=== PATIENT | male | born 1980 ===

== ENCOUNTER 2020-04-27 14:11 | Outpatient (REF) | payer OTHER, SELFPAY | END 2020-04-27 14:12 | disposition home or self-care (01) | LOC: HO.LAB 14:11 | PROVIDERS: Visit Provider Internal Medicine | DX: Z20.828 Contact with and (suspected) exposure to other viral communicable diseases (principal) | CPT/HCPCS: 87635 ==

== ENCOUNTER 2020-05-30 22:32 | Emergency (ER) | payer OTHER, SELFPAY ==
--- NOTE | 2020-05-30 22:37 | PC.NURSE ---
PATIENT'S SISTER RISHI CALLS AT THIS TIME TO PROVIDE CONTACT INFO [phone]
--- NOTE | 2020-05-30 22:42 | ED.LOWEXIN ---
HPI - Extremity Injury (Lower) General Chief Complaint: Fall Stated Complaint: FALL,RT KNEE DISLOCATION,ETOH,?LOC Time Seen by Provider: 05/30/20 22:41 Source: patient and EMS Mode of arrival: EMS Limitations: no limitations History of Present Illness HPI Narrative: Apparently patient had few drinks at home with history of seizures was coming inside with wine cooler in hand lost balance noticed severe pain in right knee and he dropped the cooler, patient fell without any significant head injury transient dazing no seizure activity no tongue bite patient feels fine now. According to patient's brother his right kneecap was on the side which he pushed back at this time patient just complaining of knee pain. Patient denied any prior history of any problems MD complaint: knee injury Related Data Previous Rx's Medication Instructions Recorded ibuprofen 600 mg PO Q6H PRN #20 tab 05/31/20 Allergies Allergy/AdvReac Type Severity Reaction Status Date / Time No Known Allergies Allergy Unverified 03/30/20 16:34 Review of Systems Review of Systems: REVIEW OF SYSTEMS: Pertinent positives and negatives are stated above in the history. GEN: no fevers, chills, fatigue HEENT: no nasal congestion, sore throat, ear pain NEURO: no headache, dizziness, focal weakness PULM: no cough, shortness of breath CV: no chest pain, palpitations, LE edema ABD: no abdominal pain, nausea, vomiting, diarrhea : no dysuria, urgency, frequency SKIN: no rash ROS otherwise negative x 10 PMFSH Social History Social History Advance Directives: No Advance Directives Information Provided: Yes Physical Exam Vital Signs: Vital Signs: Last Vital Signs Pulse 89 05/30/20 22:43 Resp 18 05/30/20 22:43 Pulse Ox 96 05/30/20 22:43 Body Mass Index 36.3 Const: General: cooperative, healthy appearing, comfortable and no acute distress Orientation/consciousness: oriented to person, oriented to place and oriented to time HENMT: Head: Yes normal to inspection Ears: hearing grossly normal bilaterally General nose exam: Normal external nose present Face and sinus: Yes normal facial exam Mouth: Normal oral and palatal mucosa present and oropharynx normal Eyes: General: appearance normal, both eyes and all related structures Neck: Neck: Yes normal visual inspection and Yes full ROM Chest: Chest palpation & inspection: normal inspection of the chest and normal palpation of entire chest wall Resp: Effort & Inspection: normal respiratory effort Auscultation: clear to auscultation bilaterally Cardio: Rate: regular rate Rhythm: regular rhythm Heart sounds: S1 normal heart sound present and S2 normal heart sound present GI: Inspection: Yes normal to inspection Palpation (GI): Soft to palpation, Firmness to palpation present (GI), nontender and no guarding : General: Yes no CVA tenderness Back/Spine/Pelvis: Back: no CVA tenderness Cervical Spine: normal cervical lordosis Thoracic/Lumbar Spine: thoracic and lumbar spine normal to inspection Pelvis: no pain with anterior-posterior compression Neuro: General: oriented to person, oriented to place and oriented to time Cranial nerves: Yes CN's II-XII intact bilaterally Gait exam (Neuro): Normal gait present Extrem: Knee images: 1. Medial joint line tenderness no laxity Matt sign is negative good range of movement no effusion patellas normal location Course Course Course Narrative: Patient x-ray of the knees negative clinically patient had medial collateral ligament strain able to ambulate in the ER will discharge him home Mario wrap was applied Discharge Plan Discharge Clinical Impression: Knee MCL sprain Qualifiers: Encounter type: initial encounter Laterality: right Qualified Code(s): S83.411A - Sprain of medial collateral ligament of right knee, initial encounter Patient Disposition: Home, Self-Care Instructions: Knee Sprain (ED) Additional Instructions: Care of right knee is advised avoid going upstairs apply Mario wrap or knee band for support, ibuprofen for pain report to the PCP if pain does not get better Prescriptions: New ibuprofen 600 mg tablet 600 mg PO Q6H PRN (Reason: pain) Qty: 20 RF: 0 Stand Alone Forms: Work/School Release Interventions: ED Discharge Assessment Last Done: 05/31/20 00:26 Discharge Date/Time: 05/31/20 00:31
[2020-05-30 22:43] VITALS: BP 128/84; PULSE 84; PULSE 89; RESP 18; O2SAT 96; O2SAT 98; BMI 36.3
--- NOTE | 2020-05-30 23:00 | XR_ITS ---
EXAMINATION: XR KNEE, RIGHT CLINICAL INFORMATION: Fall. Patellar dislocation. COMPARISON: None TECHNIQUE: Four views of the right knee. FINDINGS: Bones and soft tissues are normal. No fracture or joint effusion. Alignment is anatomic. Joint spaces are well maintained. No abnormal soft tissue calcification. XR/XR knee RT 4V IMPRESSION: Normal right knee.
== END 2020-05-31 00:31 | disposition home or self-care (01) ==
PROVIDERS: Emergency Provider Internal Medicine; PCP Internal Medicine Medical Oncology
DX: S83.411A Sprain of medial collateral ligament of right knee, initial encounter (principal); M25.561 Pain in right knee; Y29.XXXA Contact with blunt object, undetermined intent, initial encounter; Y93.9 Activity, unspecified; Y92.009 Unspecified place in unspecified non-institutional (private) residence as the place of occurrence of the external cause; Y99.9 Unspecified external cause status
CPT/HCPCS: 73564; 99283

== ENCOUNTER 2023-06-11 15:26 | Outpatient (AMB) | payer OTHER, SELFPAY ==
[2023-06-11 15:37] VITALS: BP 132/90; PULSE 85; O2SAT 98; BMI 29.3
--- NOTE | 2023-06-11 15:37 | A.OFFPC_ITS ---
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 Previous PCP Dr. Stoll, last visit 2019. Medical history significant for epilepsy-patient reports last seizure about in 2012-stable with carbamazepine-does not see Neurology anymore, GERD, smoker-would like to have nicotine patch. Reports drinking beer 5 times per week about 6-7 drinks per day, encouraged alcohol cessation-he declined referral to comprehensive care clinic. Reports he lost about 30 lb in the past year, reports sometimes he has to move bowels 4 times per day - no consistency, denies constipation or diarrhea. No shortness of breath or chest pain. Discussed tetanus vaccine. [facility] Surgical History History of hernia surgery Social History Housing: House Patient Tobacco Use Status: Current everyday Tobacco user Cigarettes Per Day: 8 service: No Current occupational status: employed Cognitive needs: No Hearing needs: No Vision needs: No Questionnaire Thrive Questionnaire Date Thrive assessed: 06/11/23 I am a: Patient What is your living situation today?: I have a steady place to live Within the past 12 months, did the food you bought not last and you didn't have the money to get more?: Never true Within the past 12 months, did you worry whether your food would run out before you got money to buy more?: Never true Currently or been in a relationship where the following occur: no concerns reported AUDIT C Alcohol Use Questionnaire (AUDIT-C) 1. How often do you have a drink containing alcohol?: 4 or more times a week 2. How many drinks containing alcohol do you have on a typical day when you are drinking?: 5 or 6 3. How often do you have six or more drinks on one occasion?: Never Total Score: 6 Score Reviewed/Action Taken: Yes DEMARIO-7 AMB Questionnaire DEMARIO-7 Date DEMARIO - 7 assessed: 06/11/23 Feeling nervous, anxious, or on edge: 0 = Not at all Not being able to stop or control worryin = Not at all Worrying too much about different things: 0 = Not at all Trouble relaxin = Not at all Being so restless that it is hard to sit still: 0 = Not at all Becoming easily annoyed or irritable: 0 = Not at all Feeling afraid as if something awful might happen: 0 = Not at all Total DEMARIO-7 score (0-4 normal; 5-9 mild; 10-14 moderate; 15-21 severe): 0 Source: Developed by Drs. Vick Restrepo, Ashley Moody, Al Gonzalez and colleagues, with an educational kareem from [employer]. DEMARIO-7 Assessment Billing DEMARIO-7 Assessment Tool: DEMARIO-7 Assessment 33005 Review of Systems Const Denies body aches, Denies chills, Denies fever(s), Denies headache(s) and Reports weight loss Eyes Denies change in vision ENT Denies dizziness, Denies otalgia, Denies headache(s), Denies nasal discharge, Denies sinus pain and Denies sore throat Card Denies chest pain, Denies edema, Denies lightheadedness and Denies dyspnea Resp Denies cough, Denies dyspnea and Denies wheezing GI Denies abdominal pain, Denies constipation, Denies diarrhea, Denies nausea and Denies vomiting Denies dysuria Musc Denies myalgias Skin/Breast Denies rash Neuro Denies dizziness and Denies headache(s) Aller/Immun Denies wheezing Physical exam (Primary Care) Vital Signs: Last Vital Signs Pulse 85 06/11/23 15:37 BP 132/90 H 06/11/23 15:37 Pulse Ox 98 06/11/23 15:37 Oxygen Delivery Method Room Air 06/11/23 15:37 BMI result Body Mass Index 29.3 Tobacco/Smoking Status: Tobacco use Status Tobacco use date assessed 06/11/23 06/11/23 15:38 Patient Tobacco Use Status Current everyday Tobacco 06/11/23 15:46 Thrive Assessment: Date of Thrive Assessment Date Thrive assessed 06/11/23 06/11/23 15:46 Currently or been in a relationship where the following occur: no concerns reported Const General: cooperative and no acute distress Orientation/consciousness: patient oriented x3 HENMT Head: Yes normocephalic and Yes atraumatic Ears: TM's normal bilaterally Face and sinus: Yes sinuses nontender Mouth: oropharynx normal and moist mucous membranes Throat: Yes posterior oropharynx normal Eyes General: appearance normal, both eyes and all related structures Pupils: Equal, round and reactive pupils present EOM: EOMs intact bilaterally Neck Neck: Yes normal visual inspection, Yes full ROM and Yes no lymphadenopathy Thyroid: Thyroid normal Resp Effort & Inspection: normal respiratory effort and able to speak in complete sentences Auscultation: clear to auscultation bilaterally, no crackles, no rales, no rhonchi and no wheezes Cardio Rate: regular rate Rhythm: regular rhythm Heart sounds: S1 normal heart sound present, S2 normal heart sound present and no murmurs GI Palpation (GI): Soft to palpation, not firm, nontender, no guarding, not rigid and no hepatosplenomegaly Auscultation: normal bowel sounds General: No CVA tenderness Back/Spine/Pelvis Back: No CVA tenderness Skin General skin exam: no rashes or lesions noted Neuro General: patient oriented x3 Cranial nerves: Yes Equal, round and reactive pupils present Gait exam (Neuro): Normal gait present Extrem General: Yes full ROM and No edema Assessment and Plan Assessment & Plan (1) Adult general medical exam: Code(s): Z00.00 - Encounter for general adult medical examination without abnormal findings (2) Smoker: Code(s): F17.200 - Nicotine dependence, unspecified, uncomplicated Plan: Reports smoking about 8 cigarettes per day Encouraged smoking cessation Nicotine patch sent (3) Epilepsy: Comment: last seizure about 2012 Code(s): G40.909 - Epilepsy, unspecified, not intractable, without status epilepticus Plan: On carbamazepine 100 mg b.i.d. (4) GERD (gastroesophageal reflux disease): Code(s): K21.9 - Gastro-esophageal reflux disease without esophagitis Plan: Stable with omeprazole Avoid GERD trigger foods Do not lay down 2-3 hours after evening meal (5) Weight loss: Code(s): R63.4 - Abnormal weight loss Plan: Blood work ordered (6) Alcohol abuse: Code(s): F10.10 - Alcohol abuse, uncomplicated Plan: Encouraged alcohol cessation Declined comprehensive care clinic referral Reports this is not a problem for him Plan Follow-up in 6 months Orders: Orders Complete Blood Count Auto Diff Today G40.909 - Epilepsy, unspecified, not intractable, without status epilepticus TDaP Immunization Today Z23 - Encounter for immunization Vitamin D 25-OH Total Today G40.909 - Epilepsy, unspecified, not intractable, without status epilepticus TSH reflex Free T4 Today G40.909 - Epilepsy, unspecified, not intractable, without status epilepticus Lipid Panel Today G40.909 - Epilepsy, unspecified, not intractable, without status epilepticus Comprehensive [place]. Panel Fast Today G40.909 - Epilepsy, unspecified, not intractable, without status epilepticus Medications: New nicotine 1 patch transdermal DAILY 28 ea 0RF F17.200 - Nicotine dependence, unspecified, uncomplicated Boostrix Tdap (diphth,pertus(acell),tetanus) 0.5 mL IM ONCE 0.5 mL 0RF NS Z23 - Encounter for immunization Coding Level of Care Code New Pt Prev Care 40-64y(62509) Diagnoses Adult general medical exam Z00.00 Smoker F17.200 Epilepsy G40.909 GERD (gastroesophageal reflux disease) K21.9 Weight loss R63.4 Alcohol abuse F10.10 Additional Codes DEMARIO-7 Assessment Billing - DEMARIO-7 Assessment Tool: DEMARIO-7 Assessment 39909 ([id number])
== END 2023-06-11 16:16 | disposition home or self-care (01) ==
PROVIDERS: PCP Nurse Practitioner Family; Visit Provider Nurse Practitioner Family
DX: Z00.00 Encounter for general adult medical examination without abnormal findings (principal); F17.200 Nicotine dependence, unspecified, uncomplicated; G40.909 Epilepsy, unspecified, not intractable, without status epilepticus; Z23 Encounter for immunization; K21.9 Gastro-esophageal reflux disease without esophagitis; R63.4 Abnormal weight loss; F10.10 Alcohol abuse, uncomplicated
CPT/HCPCS: 90471; 90715; 99386

== ENCOUNTER 2023-06-17 06:06 | Outpatient (REF) | payer OTHER, SELFPAY ==
[2023-06-17 06:18] LABS: MANUAL DIFF FLAG NO
[2023-06-17 06:21] LABS: Basophils Absolute Auto 0.1 X10*3/uL (0.0-0.2); Basophils Percent Auto 1.6 % (0-2); Eosinophils Absolute Auto 0.3 X10*3/uL (0.0-0.4); Eosinophils Percent Auto 6.5 % (0-4); Hematocrit 48.7 % (42.0-52.0); Hemoglobin 16.4 g/dl (14.0-18.0); Imm Gran Abs Auto 0.01 X10*3/uL (0.00-0.03); Imm Gran Pct Auto 0.3 % (0.0-0.4); Lymphocytes Absolute Auto 1.6 X10*3/uL (1.2-4.9); Lymphocytes Percent Auto 42.7 % (20-40); Mean Corpuscular HGB Conc 33.7 g/dl (31.0-36.0); Mean Corpuscular Hemoglobin 29.9 pg (27.0-33.0); Mean Corpuscular Volume 88.7 fL (80.0-98.0); Mean Platelet Volume 9.1 fL (9.4-12.4); Monocytes Absolute Auto 0.4 X10*3/uL (0.1-1.2); Monocytes Percent Auto 11.2 % (2-11); Neutrophils Absolute Auto 1.5 x10*3/uL (2.0-8.3); Neutrophils Percent Auto 37.7 % (45-73); Platelet Count 199 X10*3/uL (160-400); Red Blood Count 5.49 X10*6/uL (4.60-5.80); Red Cell Distribution Width 12.4 % (11.0-16.0); White Blood Count 3.8 X10*3/uL (4.8-10.8)
[2023-06-17 07:06] LABS: Alanine Aminotransferase 16 U/L (0-40); Albumin Level 3.9 g/dL (3.5-5.0); Alkaline Phosphatase 59 U/L (39-117); Anion Gap 13 (12-20); Aspartate Amino Transferase 16 U/L (5-37); Bilirubin Total 0.5 mg/dL (0.0-1.0); Blood Urea Nitrogen 11 mg/dL (9-16); Calcium 9.1 mg/dL (8.4-10.2); Carbon Dioxide 25 mmol/L (22-29); Chloride 106 mmol/L (96-108); Cholesterol 174 mg/dL (<200); Estimated Glomerular Filt Rate > 60; Glucose Fasting 104 mg/dL (60-99); HDL Cholesterol 66 mg/dL (>40); LDL Cholesterol Calculated 89 mg/dL (<100); Potassium 4.6 mmol/L (3.3-5.1); Sodium 139 mmol/L (135-145); Total Protein 6.6 g/dL (6.5-8.0); Triglycerides 96 mg/dL (<150)
[2023-06-17 07:22] LABS: TSH reflex Free T4 1.31 uIU/mL (0.32-4.0)
== END 2023-06-17 06:07 | disposition home or self-care (01) ==
LOC: HO.LAB 06:06
PROVIDERS: PCP Nurse Practitioner Family; Visit Provider Nurse Practitioner Family
DX: G40.909 Epilepsy, unspecified, not intractable, without status epilepticus (principal)
CPT/HCPCS: 36415; 80053; 80061; 82306; 84443; 85025

== ENCOUNTER 2023-07-01 06:03 | Outpatient (REF) | payer OTHER, SELFPAY ==
[2023-07-01 07:08] LABS: Estimated Average Glucose 100 mg/dL; Hemoglobin A1c % 5.1 % (<6.0)
== END 2023-07-01 06:04 | disposition home or self-care (01) ==
LOC: HO.LAB 06:03
PROVIDERS: PCP Nurse Practitioner Family; Visit Provider Nurse Practitioner Family
DX: R73.01 Impaired fasting glucose (principal)
CPT/HCPCS: 36415; 83036

== ENCOUNTER 2023-08-02 18:10 | Emergency (ER) | payer BC, SELFPAY ==
[2023-08-02 18:11] VITALS: BP 136/92; PULSE 109; RESP 18; TEMP 36.3; O2SAT 98; BMI 29.5
--- NOTE | 2023-08-02 18:11 | ED_ITS ---
HPI - General Adult General Stated complaint: Seizure, hx of epilepsy Related Data Home Medications Medication Instructions Recorded Confirmed carbamazepine 100 mg chewable 100 mg PO BID 06/11/23 06/11/23 tablet omeprazole 20 mg capsule,delayed 20 mg PO DAILY 06/11/23 06/11/23 release Previous Rx's Medication Instructions Recorded nicotine 14 mg/24 hr daily 1 patch transdermal DAILY #28 ea 06/11/23 transdermal patch cholecalciferol (vitamin D3) 50 50 mcg PO DAILY #90 tabs 06/26/23 mcg (2,000 unit) tablet Allergies Allergy/AdvReac Type Severity Reaction Status Date / Time No Known Allergies Allergy Verified 06/11/23 15:52 [facility] Past Medical History Onset Date is defined in the Problem List Problems that require an onset date and time if occurred within 24 hrs of arrival to the ED Aortic Dissection and Rupture; Neurologic impairment; Cardiopulmonary Arrest; Endotracheal Intubation; Insertion or Replacement of Mechanical Circulatory Assist Device Surgical History History of hernia surgery Social History Social History Housing: House Patient Tobacco Use Status: Current everyday Tobacco user Cigarettes Per Day: 8 service: No Current occupational status: employed Cognitive needs: No Hearing needs: No Vision needs: No Course Course Course Narrative: This is a rapid medical exam: Additional HPI, ROS, PE not included below will be deferred to primary provider. Patient is a 43-year-old male with history of epilepsy, alcohol abuse, GERD, smoking presenting to the ED after episode of convulsions around 30 minutes ago. States he was sitting in a chair at the time, brother was present, did not fall to the floor, unsure if loss of consciousness. Not anticoagulated. States he is on carbamazepine for his seizures, no recent changes to his medications. Denies headache, dizziness. No seizures in several years. Admits to drinking one beer tonight, states symptoms began as he started to drink second beer. Denies nausea or vomiting. Plan: EKG, labs, UA Discharge Plan Discharge Prescriptions: No Action cholecalciferol (vitamin D3) 50 mcg (2,000 unit) tablet 50 mcg PO DAILY Qty: 90 0RF omeprazole 20 mg capsule,delayed release(DR/EC) 20 mg PO DAILY carbamazepine 100 mg tablet,chewable 100 mg PO BID nicotine 14 mg/24 hr patch 24 hour 1 patch transdermal DAILY Qty: 28 0RF
--- NOTE | 2023-08-02 18:15 | ECG_ITS ---
Test Reason : SEIZURE Blood Pressure : / mmHG Vent. Rate : 099 BPM Atrial Rate : 099 BPM P-R Int : 156 ms QRS Dur : 084 ms QT Int : 308 ms P-R-T Axes : 062 -03 059 degrees QTc Int : 395 ms Normal sinus rhythm Possible Left atrial enlargement Borderline ECG No previous ECGs available Referred By: Marii Rollins Electronically Signed By:GERMAIN PHOENIX
[2023-08-02 18:52] LABS: MANUAL DIFF FLAG NO
[2023-08-02 18:54] LABS: Basophils Percent Auto 0.9 % (0-2); Eosinophils Percent Auto 0.4 % (0-4); Hematocrit 44.7 % (42.0-52.0); Hemoglobin 15.3 g/dl (14.0-18.0); Imm Gran Abs Auto 0.01 X10*3/uL (0.00-0.03); Imm Gran Pct Auto 0.2 % (0.0-0.4); Lymphocytes Absolute Auto 0.5 X10*3/uL (1.2-4.9); Lymphocytes Percent Auto 11.9 % (20-40); Mean Corpuscular HGB Conc 34.2 g/dl (31.0-36.0); Mean Corpuscular Hemoglobin 29.5 pg (27.0-33.0); Mean Corpuscular Volume 86.3 fL (80.0-98.0); Mean Platelet Volume 8.8 fL (9.4-12.4); Monocytes Absolute Auto 0.8 X10*3/uL (0.1-1.2); Neutrophils Absolute Auto 3.2 x10*3/uL (2.0-8.3); Neutrophils Percent Auto 69.6 % (45-73); Platelet Count 154 X10*3/uL (160-400); Red Blood Count 5.18 X10*6/uL (4.60-5.80); Red Cell Distribution Width 12.7 % (11.0-16.0); White Blood Count 4.5 X10*3/uL (4.8-10.8)
--- NOTE | 2023-08-02 19:04 | ED_ITS ---
HPI - Seizure General Chief Complaint: Seizure Stated Complaint: Seizure, hx of epilepsy Time Seen by Provider: 08/02/23 18:27 History of Present Illness HPI Narrative: Patient is a 43-year-old male with a history of seizures in the past. Last seizure was about 8 years ago. Patient had a seizure that appeared to his brother is tonic clonic shaking arm and legs with a period of tiredness. Patient symptom lasted about a minute. Has a history of the same in the past. Have not had 1 in about a year's. Patient has been on Tegretol the dose of which had not changed in the last 5 years. There has no fever no chills. There has no chest pain. There has no change in sleep pattern. There has no energy drinks. Denies any recreational drugs. He did drink 2 beers today. No neck pain. No focal weakness Seizure History: Yes Place: Home Related Data Home Medications Medication Instructions Recorded Confirmed carbamazepine 100 mg chewable 100 mg PO BID 06/11/23 06/11/23 tablet omeprazole 20 mg capsule,delayed 20 mg PO DAILY 06/11/23 06/11/23 release Previous Rx's Medication Instructions Recorded nicotine 14 mg/24 hr daily 1 patch transdermal DAILY #28 ea 06/11/23 transdermal patch cholecalciferol (vitamin D3) 50 50 mcg PO DAILY #90 tabs 06/26/23 mcg (2,000 unit) tablet Allergies Allergy/AdvReac Type Severity Reaction Status Date / Time No Known Allergies Allergy Verified 06/11/23 15:52 Review of Systems 2 Review of Systems: No fever no chills no chest pain or shortness of breath All systems reviewed otherwise negative PMFSH Past Medical History Attestation statement: The following information was validated with the patient. Onset Date is defined in the Problem List Problems that require an onset date and time if occurred within 24 hrs of arrival to the ED Aortic Dissection and Rupture; Neurologic impairment; Cardiopulmonary Arrest; Endotracheal Intubation; Insertion or Replacement of Mechanical Circulatory Assist Device Surgical History History of hernia surgery Social History Social History Housing: House Alcohol intake: current Alcohol intake frequency: a few times a week Alcohol type: beer Patient Tobacco Use Status: Current everyday Tobacco user Cigarettes Per Day: 8 Smoked in Last 30 Days: Yes Use of substances other than those prescribed or required for medical reasons: No Advance Directives: No Advance Directives Information Provided: No service: No Current occupational status: employed Cognitive needs: No Hearing needs: No Vision needs: No Physical Exam 2 Vital Signs: Vital Signs: Last Vital Signs Temp 99.3 F 08/02/23 19:30 Pulse 100 08/02/23 19:30 Resp 18 08/02/23 19:30 BP 135/71 08/02/23 19:30 Pulse Ox 95 08/02/23 19:30 O2 Del Method Room Air 08/02/23 19:30 BMI result Body Mass Index 29.5 Appearance: Alert. Oriented X3. No acute distress. Eyes: Pupils equal, round and reactive to light. ENT: Pharynx normal. Neck: Normal inspection. Neck supple. No lymph nodes noted. No crepitus CVS: Normal heart rate and rhythm. Pulses normal. Normal S1 and S2 Respiratory: No respiratory distress. Breath sounds normal. No Wheezing. No rales Abdomen: Soft and nontender. No rigidity. No distention. good BS x4 Skin: Skin warm and dry. Normal skin color. Normal skin turgor. Extremities: No lower extremity edema. Neurovascular intact to all extremities. No Lacerations. No Rash Neuro: Oriented X 3. No motor deficit. No sensory deficit. Moving all extermities. No slurred speech Medications Administered Discontinued Medications Generic Name Dose Route Start Last Admin Trade Name Freq PRN Reason Stop Dose Admin Carbamazepine 100 mg 08/02/23 20:23 08/02/23 20:46 Carbamazepine 100 Mg Tab.Chew PO 08/02/23 20:24 100 mg ONCE ONE Administration Medical Decision Making Medical Decision Making MDM Narrative: Patient's labs came back with a Tegretol level that is less than 2. Most likely patient has seizure contributed by noncompliant with medications. Explained to patient the need to take his medication on a regular basis. Not taking seizure medicine can cause seizures to return. Patient is explained the need to take seizure precautions. No driving no activities that would put him in danger if he had a seizure at that time. No heavy machinery. No swimming. Patient states understanding. Patient has enough Tegretol at home. Will discharge patient home follow-up with neurology. First dose of Tegretol was given. In stable condition Differential Diagnosis Differential Diagnoses: The differential diagnosis associated with the presentation includes Breakthrough seizure, noncompliance with medication Admission/Observation Consideration of admission/observation: Escalation of care including admission/observation considered Well-appearing neurologically intact Lab Data MDM Lab Attestation statement: I reviewed the patient's lab results. 08/02/23 18:48 08/02/23 18:48 Labs: Lab Results 08/02/23 08/02/23 Range/Units 18:48 19:42 WBC 4.5 L (4.8-10.8) X10*3/uL RBC 5.18 (4.60-5.80) X10*6/uL Hgb 15.3 (14.0-18.0) g/dl Hct 44.7 (42.0-52.0) % MCV 86.3 (80.0-98.0) fL MCH 29.5 (27.0-33.0) pg MCHC 34.2 (31.0-36.0) g/dl RDW 12.7 (11.0-16.0) % Plt Count 154 L (160-400) X10*3/uL MPV 8.8 L (9.4-12.4) fL Immature Gran % (Auto) 0.2 (0.0-0.4) % Neut % (Auto) 69.6 (45-73) % Lymph % (Auto) 11.9 L (20-40) % Forest % (Auto) 17.0 H (2-11) % Eos % (Auto) 0.4 (0-4) % Baso % (Auto) 0.9 (0-2) % Lymph # (Auto) 0.5 L (1.2-4.9) X10*3/uL Forest # (Auto) 0.8 (0.1-1.2) X10*3/uL Eos # (Auto) 0.0 (0.0-0.4) X10*3/uL Baso # (Auto) 0.0 (0.0-0.2) X10*3/uL Abs Immat Gran (auto) 0.01 (0.00-0.03) X10*3/uL Absolute Neuts (auto) 3.2 (2.0-8.3) x10*3/uL Absolute Nucleated RBC 0.000 (0.0-0.012) X10*3/uL Nucleated RBC % (auto) 0.0 (0.0-0.2) /100WBC Sodium 136 (135-145) mmol/L Potassium 4.4 (3.3-5.1) mmol/L Chloride 103 (96-108) mmol/L Carbon Dioxide 24 (22-29) mmol/L Anion Gap 13 (12-20) BUN 10 (9-16) mg/dL Creatinine 1.00 (0.5-1.4) mg/dL Estim Creat Clear Calc 90.7 Estimated GFR > 60 Random Glucose 91 (60-115) mg/dL Calcium 8.5 D (8.4-10.2) mg/dL Total Bilirubin 0.2 (0.0-1.0) mg/dL AST 25 (5-37) U/L ALT 24 (0-40) U/L Alkaline Phosphatase 60 (39-117) U/L Total Protein 6.9 (6.5-8.0) g/dL Albumin 3.9 (3.5-5.0) g/dL Urine Color Yellow Urine Appearance Clear Urine pH 6.5 (5.0-9.0) Ur Specific Sharon 1.020 (1.005-1.025) Urine Protein Trace (Neg-Trace) mg/dL Urine Glucose (UA) Negative (Negative) mg/dL Urine Ketones Trace (Negative) mg/dL Urine Blood Negative (Negative) Urine Nitrite Negative (Negative) Ur Leukocyte Esterase Negative (Negative) Urine Opiates Screen Not Detected (Not Detect) Urine Fentanyl Screen Not Detected (Not Detect) Ur Barbiturates Screen Not Detected (Not Detect) Carbamazepine < 2.0 L* (5.0-12.0) mcg/mL Ur Phencyclidine Scrn Not Detected (Not Detect) Ur Amphetamines Screen Not Detected (Not Detect) U Benzodiazepines Scrn Not Detected (Not Detect) Urine Cocaine Screen Not Detected (Not Detect) U Marijuana (THC) Screen Not Detected (Not Detect) Ethyl Alcohol < 10 mg/dL COVID-19 (TENZIN) Negative (Negative) COVID-19 Clin Com See Note Influenza Type A (OLAMIDE) Negative (Negative) Influenza Type B (OLAMIDE) Negative (Negative) Influenza A & B Note See Note Independent Historian Clinical information obtained from an independent historian. History obtained from or confirmed by: Parent External Record Review External record reviewed: Inpatient record Discharge Plan Discharge Clinical Impression: Epilepsy Patient Disposition: Home, Self-Care Instructions: Epilepsy (DC) Additional Instructions: No driving. No swimming. No operating heavy machinery. Prescriptions: No Action cholecalciferol (vitamin D3) 50 mcg (2,000 unit) tablet 50 mcg PO DAILY Qty: 90 0RF omeprazole 20 mg capsule,delayed release(DR/EC) 20 mg PO DAILY carbamazepine 100 mg tablet,chewable 100 mg PO BID nicotine 14 mg/24 hr patch 24 hour 1 patch transdermal DAILY Qty: 28 0RF Referrals: Quinten Recinos MD [Physician] - 08/06/23
[2023-08-02 19:09] LABS: Alanine Aminotransferase 24 U/L (0-40); Albumin Level 3.9 g/dL (3.5-5.0); Alkaline Phosphatase 60 U/L (39-117); Anion Gap 13 (12-20); Aspartate Amino Transferase 25 U/L (5-37); Bilirubin Total 0.2 mg/dL (0.0-1.0); Blood Urea Nitrogen 10 mg/dL (9-16); Calcium 8.5 mg/dL (8.4-10.2); Carbon Dioxide 24 mmol/L (22-29); Chloride 103 mmol/L (96-108); Creatinine Clr Calc Pharmacy 90.7; Estimated Glomerular Filt Rate > 60; Ethanol < 10 mg/dL; Glucose Random 91 mg/dL (60-115); Potassium 4.4 mmol/L (3.3-5.1); Sodium 136 mmol/L (135-145); Total Protein 6.9 g/dL (6.5-8.0)
[2023-08-02 19:10] LABS: COVID-19 Test Negative (Negative); IDNOW Serial# 6674DD1D
[2023-08-02 19:12] LABS: IDNOW Serial# 08D9AD1C; Influenza A Negative (Negative); Influenza B2 Negative (Negative)
--- NOTE | 2023-08-02 19:23 | PC.NURSE ---
this rn assumed care of pt. seizure precautions in place at this time. no acute distress noted.
[2023-08-02 19:30] VITALS: BP 135/71; PULSE 100; RESP 18; TEMP 37.4; O2SAT 95
[2023-08-02 19:48] LABS: Appearance Urine Clear; Color Urine Yellow; Glucose Urine UA Negative (Negative); Leukocyte Esterase Urine Negative (Negative); Nitrite Urine Negative (Negative); PH 6.5 (5.0-9.0); Urine Blood Negative (Negative); Urine Ketones Trace mg/dL (Negative); Urine Protein Trace mg/dL (Neg-Trace)
[2023-08-02 20:02] LABS: Amphetamine Screen Urine Not Detected (Not Detect); Barbiturates, Urine Not Detected (Not Detect); Benzodiazepines Screen Urine Not Detected (Not Detect); Cannabinoid Screen Urine Not Detected (Not Detect); Cocaine Screen Urine Not Detected (Not Detect); Fentanyl, urine Not Detected (Not Detect); Opiate Screen Urine Not Detected (Not Detect); Phencyclidine Screen Urine Not Detected (Not Detect)
[2023-08-02 20:10] LABS: Carbamazepine Tegretol < 2.0 mcg/mL (5.0-12.0)
[2023-08-02] MEDS: carBAMazepine 100 MG TAB.CHEW PO (20:46)
--- NOTE | 2023-08-02 20:49 | PC.NURSE ---
pt medicated per mar, tolerated well no acute distress. provider at bedside to discuss pt care.
== END 2023-08-02 21:24 | disposition home or self-care (01) ==
PROVIDERS: Registered Nurse Emergency; Emergency Provider Emergency Medicine Emergency Medical Services
DX: G40.909 Epilepsy, unspecified, not intractable, without status epilepticus (principal); Z11.52 Encounter for screening for COVID-19; F17.210 Nicotine dependence, cigarettes, uncomplicated; Z79.899 Other long term (current) drug therapy
CPT/HCPCS: 36415; 80053; 80156; 80307; 81003; 85025; 87502; 87635; 93005; 99283; 99284

== ENCOUNTER → 2023-08-02 18:15 | Outpatient (BNV) | payer SELFPAY | PROVIDERS: Emergency Provider Emergency Medicine Emergency Medical Services; Visit Provider Internal Medicine | DX: G40.89 Other seizures (principal) | CPT/HCPCS: 93010 ==

== ENCOUNTER 2023-08-04 15:39 | Outpatient (AMB) | payer BC, SELFPAY ==
[2023-08-04 15:55] VITALS: BP 122/80; PULSE 67; O2SAT 98; BMI 29.1
--- NOTE | 2023-08-04 15:55 | MHC.PC.OV ---
Vital Signs 08/04/23 15:55 Height 5 ft 4 in Weight 169 lb 8 oz BMI 29.1 BP 122/80 Blood Pressure Location Lt brachial Position Sitting Pulse 67 Pulse Source Pulse Oximeter Pulse Oximetry (%) 98 Oxygen Delivery Method Room Air Intake Visit Reasons: ED follow Government Affairs Director Required: No Accompanied by: Self / Same As Patient Allergies No Known Allergies Allergy (Verified 08/05/23 05:33) Medication List - Last Reconciled 08/05/23 by Cristopher Sanderson MD carbamazepine 100 mg PO BID 30 days cholecalciferol (vitamin D3) 50 mcg PO DAILY nicotine 1 patch transdermal DAILY omeprazole 20 mg PO DAILY Tobacco use date assessed: 08/04/23 Dental Screening Dental Screen Date: 08/04/23 Did you have a dental visit in the last 12 months?: No Did you have a dental problem in the last 6 months where you did not have access to dental care?: No Was dental information given to patient?: No HPI ED follow HPI Details Patient comes in today for his HDF follow up visit - he was a patient of Melani Flores, who recently left the practice He reportedly had a witnessed seizure episode by his brother at home a couple of days ago when he was observed to have some tonic-clonic shaking of his arms and legs that lasted for about a minute, followed by a severe bout of fatigue, after which his brother brought him to the ER for further evaluation Patient reports that prior to this, his last seizure was about a year ago His workup done in the ER were mostly normal except for a low Tegretol level Patient apparently did not have any imaging studies done as he was noted to be neurologically intact with very little pertinent findings on physical exam He was instructed to start taking his Tegretol again regularly at 100 mg BID, which reportedly has been his dosage for the past 5 years Patient states that he will need a refill on his Rx States that he has not had any further seizures since his ER visit a couple of days ago and he currently feels okay He denies any headaches or dizziness Denies any chest pains, no shortness of breath No nausea /vomiting, no abdominal pain No change in bowel habits noted [facility] Medical History (Updated 08/05/23 @ 05:54 by Cristopher Sanderson MD) Overweight (BMI 25.0-29.9) Vitamin D deficiency Smoker Epilepsy GERD (gastroesophageal reflux disease) Surgical History History of hernia surgery Family History (Updated 08/05/23 @ 05:44 by Cristopher Sanderson MD) Other Family history non-contributory Social History Housing: House Alcohol intake: current Alcohol intake frequency: a few times a week Alcohol type: beer Patient Tobacco Use Status: Current everyday Tobacco user Cigarettes Per Day: 8 e-Cigarette/Vaping Use: Never Used service: No Current occupational status: employed Cognitive needs: No Hearing needs: No Vision needs: No Questionnaire PHQ-9 Over the last 2 weeks, how often have you been bothered by any of the following problems? 1. Little interest or pleasure in doing things: not at all 2. Feeling down, depressed, or hopeless: not at all 3. Trouble falling or staying asleep, or sleeping too much: not at all 4. Feeling tired or having little energy: not at all 5. Poor appetite or overeating: not at all 6. Feeling bad about yourself - or that you are a failure or have let yourself or your family down: not at all 7. Trouble concentrating on things, such as reading the newspaper or watching television: not at all 8. Moving or speaking so slowly that other people could have noticed. Or the opposite - being so fidgety or restless that you have been moving around a lot more than usual: not at all 9. Thoughts that you would be better off or of hurting yourself in some way: not at all Total score: 0 Depression Screening Interpretation: Negative Depression Screening Done: Yes 41052 - PHQ-9 Billing: Yes Source: Developed by Drs. Vick Restrepo, Ashley Moody, Al Gonzalez and colleagues, with an educational kareem from [employer]. Thrive Questionnaire Date Thrive assessed: 08/04/23 I am a: Patient What is your living situation today?: I have a steady place to live Within the past 12 months, did the food you bought not last and you didn't have the money to get more?: Never true Within the past 12 months, did you worry whether your food would run out before you got money to buy more?: Never true Do you have trouble paying for medicines?: No Do you have trouble getting transportation to medical appointments?: No Do you have trouble paying your heating and electricity bill?: No Do you have trouble taking care of your child, family member or friend?: No Do you have trouble with day-to-day activities such as bathing, preparing meals, shopping, managing finances, etc.?: No Are you currently unemployed and looking for a job?: No Are you interested in more education?: No Please select the resources that you would like help with: None Currently or been in a relationship where the following occur: no concerns reported THRIVE Score: 0 AUDIT C Alcohol Use Questionnaire (AUDIT-C) 1. How often do you have a drink containing alcohol?: 4 or more times a week 2. How many drinks containing alcohol do you have on a typical day when you are drinking?: 5 or 6 3. How often do you have six or more drinks on one occasion?: Never Total Score: 6 Score Reviewed/Action Taken: Yes DEMARIO-7 AMB Questionnaire DEMARIO-7 Date DEMARIO - 7 assessed: 08/04/23 Feeling nervous, anxious, or on edge: 0 = Not at all Not being able to stop or control worryin = Not at all Worrying too much about different things: 0 = Not at all Trouble relaxin = Not at all Being so restless that it is hard to sit still: 0 = Not at all Becoming easily annoyed or irritable: 0 = Not at all Feeling afraid as if something awful might happen: 0 = Not at all Total DEMARIO-7 score (0-4 normal; 5-9 mild; 10-14 moderate; 15-21 severe): 0 Source: Developed by Drs. Vick Restrepo, Ahsley Moody, Al Gonzalez and colleagues, with an educational kareem from [employer]. DEMARIO-7 Assessment Billing DEMARIO-7 Assessment Tool: DEMARIO-7 Assessment 56235 Review of Systems Const Denies chills, Denies fatigue, Denies fever(s) and Denies headache(s) ENT Denies dysphagia, Denies dizziness, Denies otalgia, Denies headache(s), Denies neck pain, Denies odynophagia and Denies sore throat Card Denies chest pain, Denies palpitations and Denies dyspnea Resp Denies cough and Denies dyspnea GI Denies abdominal pain, Denies constipation, Denies dysphagia, Denies heartburn, Denies diarrhea, Denies nausea, Denies odynophagia and Denies vomiting Denies dysuria, Denies nocturia and Denies urinary frequency Musc Denies back pain and Denies neck pain Skin/Breast Denies rash Neuro Denies dizziness, Denies headache(s) and Reports convulsions (see HPI) Endo Denies fatigue and Denies palpitations Physical exam (Primary Care) Vital Signs: Last Vital Signs Pulse 67 08/04/23 15:55 BP 122/80 08/04/23 15:55 Pulse Ox 98 08/04/23 15:55 Oxygen Delivery Method Room Air 08/04/23 15:55 BMI result Body Mass Index 29.1 Tobacco/Smoking Status: Tobacco use Status Tobacco use date assessed 08/04/23 08/04/23 15:57 Patient Tobacco Use Status Current everyday Tobacco 08/04/23 15:57 e-Cigarette/Vaping Use Never Used 08/04/23 15:57 PHQ-9: PHQ-9 Score PHQ-9: Total score 0 08/04/23 16:47 Depression Screening Interpretation: Negative Thrive Assessment: Date of Thrive Assessment Date Thrive assessed 08/04/23 08/04/23 15:57 Currently or been in a relationship where the following occur: no concerns reported Const General: no acute distress and alert Neck Neck: Yes no lymphadenopathy and Yes supple Resp Auscultation: clear to auscultation bilaterally, no rales and no wheezes Cardio Rate: regular rate Rhythm: regular rhythm Heart sounds: no murmurs GI Palpation (GI): Soft to palpation, nontender and No hepatosplenomegaly present Extrem General: Yes no clubbing, cyanosis or edema Assessment and Plan Assessment & Plan (1) Epilepsy: Comment: last seizure about 2012 Code(s): G40.909 - Epilepsy, unspecified, not intractable, without status epilepticus Qualifiers: Epilepsy type: unspecified Intractability: not intractable Status epilepticus: without status epilepticus Qualified Code(s): G40.909 - Epilepsy, unspecified, not intractable, without status epilepticus Plan: His Tegretol level was very low at <2 mcg/ml (therapeutic range is between 5.0 to 12.0 mcg/ml) on his labs done at the ER a couple of days ago Continue Tegretol 100 mg BID for now (Rx refilled) and will have him recheck his Tegretol level in a couple of weeks for follow up Have again stressed to patient the importance of compliance with his medications Will also refer patient to neurology MAURICIO for further evaluation and management He does not appear to have had any neurologic imaging studies done recently - will leave it up to neurology for now to decide if he needs an updated head CT or MRI for further evaluation (2) GERD (gastroesophageal reflux disease): Code(s): K21.9 - Gastro-esophageal reflux disease without esophagitis Qualifiers: Esophagitis presence: without esophagitis Qualified Code(s): K21.9 - Gastro-esophageal reflux disease without esophagitis Plan: Dietary restrictions reinforced Continue Omeprazole 20 mg QD (3) Vitamin D deficiency: Code(s): E55.9 - Vitamin D deficiency, unspecified Plan: Continue Vitamin D3 2000 units QD (4) Alcohol use disorder: Code(s): F10.90 - Alcohol use, unspecified, uncomplicated Plan: Have encouraged patient to quit drinking - have advised him that alcohol can significantly increase seizure risks and also adversely affect serum levels of antiepileptics, including Tegretol (5) Smoker: Code(s): F17.200 - Nicotine dependence, unspecified, uncomplicated Plan: Counseled on smoking cessation (6) Overweight (BMI 25.0-29.9): Code(s): E66.3 - Overweight Plan: Reinforced diet/exercise as tolerated/lose weight Plan Follow up with PCP in 3 months Orders: Orders Carbamazepine Tegretol 2 Weeks G40.909 - Epilepsy, unspecified, not intractable, without status epilepticus Referrals Neurology Referral G40.909 - Epilepsy, unspecified, not intractable, without status epilepticus Medications: Changed From carbamazepine 100 mg PO BID To carbamazepine 100 mg PO BID 30 days 60 tabs 2RF Coding Level of Care Code Est Pt Level 4 (18807) Diagnoses Nonintractable epilepsy without status epilepticus, unspecified epilepsy type G40.909 Epilepsy type: unspecified Intractability: not intractable Status epilepticus: without status epilepticus Gastroesophageal reflux disease without esophagitis K21.9 Esophagitis presence: without esophagitis Vitamin D deficiency E55.9 Alcohol use disorder F10.90 Smoker F17.200 Overweight (BMI 25.0-29.9) E66.3 Additional Codes DEMARIO-7 Assessment Billing - DEMARIO-7 Assessment Tool: DEMARIO-7 Assessment 53064 ([id number])
== END 2023-08-04 16:55 | disposition home or self-care (01) ==
PROVIDERS: Visit Provider Internal Medicine
DX: G40.909 Epilepsy, unspecified, not intractable, without status epilepticus (principal); K21.9 Gastro-esophageal reflux disease without esophagitis; E55.9 Vitamin D deficiency, unspecified; F10.90 Alcohol use, unspecified, uncomplicated; F17.200 Nicotine dependence, unspecified, uncomplicated; E66.3 Overweight
CPT/HCPCS: 99214

== ENCOUNTER 2023-08-18 06:20 | Outpatient (REF) | payer BC, SELFPAY ==
[2023-08-18 08:42] LABS: Carbamazepine Tegretol < 2.0 mcg/mL (5.0-12.0)
== END 2023-08-18 06:21 | disposition home or self-care (01) ==
LOC: HO.LAB 06:20
PROVIDERS: PCP Internal Medicine; Visit Provider Internal Medicine
DX: G40.909 Epilepsy, unspecified, not intractable, without status epilepticus (principal); Z79.899 Other long term (current) drug therapy
CPT/HCPCS: 36415; 80156

== ENCOUNTER 2023-11-05 16:36 | Outpatient (REF) | payer BC, SELFPAY ==
--- NOTE | ~2023-11-05 | MR_ITS ---
EXAMINATION: MR BRAIN WITHOUT AND WITH CONTRAST CLINICAL INFORMATION: Seizure disorder COMPARISON: None available. TECHNIQUE: Multiplanar, multisequence MRI of the brain was obtained before and after the intravenous administration of 8 mL Gadavist. FINDINGS: Ventricles, sulci and cisterns are normal. No focal cerebral, brainstem or cerebellar lesions with abnormal signal can be seen. Coronal images show no focal temporal lobe lesion or asymmetry. Diffusion weighted images show no abnormal regional decrease in diffusion. Post contrast images show no enhancing cerebral, brainstem or cerebellar lesions. No abnormal meningeal enhancement is seen. The pituitary gland is normal. Optic chiasm is not displaced. Cerebellar tonsils position is normal. MR/MR head/brain wo/w con IMPRESSION: 1. Normal MRI scan of the brain. No evidence of mesial temporal sclerosis. 2. No acute cerebral infarction is seen. 3. No evidence of space occupying or enhancing intracranial mass lesion could be found. 4. No evidence of intracranial hemorrhage.
[2023-11-05] MEDS: gadobutroL 10 ML VIAL IVPUSH (17:48)
== END 2023-11-05 16:37 | disposition home or self-care (01) ==
LOC: HO.MRI 16:36
PROVIDERS: PCP Internal Medicine; Visit Provider Psychiatry & Neurology Neurology
DX: G40.909 Epilepsy, unspecified, not intractable, without status epilepticus (principal)
CPT/HCPCS: 70553; A9585

== ENCOUNTER 2024-01-06 15:14 | Outpatient (AMB) | payer BC, SELFPAY ==
--- NOTE | 2024-01-06 15:18 | A.OFFVIS_ITS ---
Vital Signs 01/06/24 15:19 Height 5 ft 4 in Weight 171 lb BMI 29.3 BP 124/82 Blood Pressure Location Rt brachial Position Sitting Intake Visit Reasons: PROFESSOR OF THEATER/PCP referral for VV Intake Note: Patient presents for referral for varicose veins. Patient has varicose veins on right leg with pain and swelling, sometimes walking makes pain worst. patient gets a lot of cramping. Allergies No Known Allergies Allergy (Verified 01/06/24 15:28) HPI HPI PROFESSOR OF THEATER/PCP referral for VV: Details: Very pleasant 43-year-old gentle patient presents for painful varicose veins. Complaints include pain over varicosities, swelling of lower extremities, cramping, fatigue, and heaviness of the lower extremities. 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 It is noted more so in right leg. Patient denies any previous venous surgery or injections. Patient denies any history of DVT/ PE. Patient he does have episodes of previous phlebitis on the right lower extremity varicosities. Trial of compression includes - [id number] They now present for vascular evaluation regarding their varicose veins. [facility] Medical History (Updated 01/06/24 @ 16:10 by Kvng Wright MD) Varicose veins of bilateral lower extremities with pain Overweight (BMI 25.0-29.9) Vitamin D deficiency Smoker Epilepsy GERD (gastroesophageal reflux disease) Surgical History History of hernia surgery Family History Other Family history non-contributory Social History Housing: House Alcohol intake: current Alcohol intake frequency: a few times a week Alcohol type: beer Patient Tobacco Use Status: Current everyday Tobacco user Cigarettes Per Day: 8 e-Cigarette/Vaping Use: Never Used service: No Current occupational status: employed Cognitive needs: No Hearing needs: No Vision needs: No Review of Systems Const Reports as per HPI ENT Reports no additional complaints Card Denies chest pain, Denies chest pain at rest and Denies chest pain with activity Resp Denies chest congestion and Denies cough GI Reports no additional complaints Musc Details: pain over varicosities, aching of lower extremities, swelling, cramping, heaviness and tiredness, itching Denies abnormal gait Skin/Breast Reports pruritus and Denies wounds Neuro Reports no additional complaints and Denies abnormal gait Psych Denies no additional complaints Physical Exam Vital Signs: Last Vital Signs BP 124/82 01/06/24 15:19 BMI result Body Mass Index 29.3 Const General: cooperative, healthy appearing and comfortable Orientation/consciousness: oriented to person, oriented to place and oriented to time Neck Carotids: no bruits Chest Chest palpation & inspection: normal inspection of the chest and normal palpation of entire chest wall Resp Effort & Inspection: normal respiratory effort and able to speak in complete sentences Cardio Rate: regular rate Heart sounds: S1 normal heart sound present and S2 normal heart sound present Peripheral pulses: Peripheral pulses 2+ throughout GI Inspection: Yes normal to inspection Skin Other: +2 edema, large rope-like varicosities greater than 4 mm CEAP Classification C4 - skin color changes Ep - Etiology Primary As - superficial veins P - reflux General skin exam: dry skin Neuro General: oriented to person, oriented to place and oriented to time Extrem Right lower extremity: full ROM, normal capillary refill and edema Left lower extremity: full ROM, normal capillary refill and edema Psych Mental Status: mental status grossly normal Assessment & Plan Assessment & Plan (1) Varicose veins of right lower extremity with inflammation: Code(s): I83.11 - Varicose veins of right lower extremity with inflammation Category: Medical Plan: In short, the patient has evidence of venous insufficiency. I have discussed the pathophysiology with the patient. In addition I have provided informational material regarding venous disease to the patient. We have discussed conservative measures including compression, elevation, and exercise. I have also provided a handout regarding appropriate use of compression stockings and where to purchase good compression stockings as well. I have taken the liberty of ordering venous insufficiency testing with the patient. They will follow up with me after testing. The patient had an opportunity to ask questions regarding the treatment plan. All questions were answered. Imaging studies, laboratory studies and physical exam results were discussed and reviewed in detail. No major barriers to understanding were identified. The patient expressed understanding and agreement with the above treatment plan. The patient is aware they should contact our office by phone for worsening of the current condition or the appearance of new symptoms. Thank you for allowing me to participate in the vascular care of this patient. If you have any questions or concerns regarding the treatment for the above condition please do not hesitate to contact me. The office telephone contact is [phone]. This note is constructed using voice recognition software. While every effort has been made to ensure accuracy, repairer shoe sticks errors may have been included. Thank you for allowing me to participate in the care of your patient. Yours sincerely, Kvng Wright MD, FACS, R.P.V.I. Orders: Orders US venous duplex LE BI 1 Week I83.11 - Varicose veins of right lower extremity with inflammation Coding Level of Care Code New Pt Level 4 (24044) Diagnoses Varicose veins of right lower extremity with inflammation I83.11
[2024-01-06 15:19] VITALS: BP 124/82; BMI 29.3
== END 2024-01-07 08:46 | disposition home or self-care (01) ==
PROVIDERS: PCP Internal Medicine; Visit Provider Surgery Vascular Surgery
DX: I83.11 Varicose veins of right lower extremity with inflammation (principal)
CPT/HCPCS: 99203

== ENCOUNTER → 2024-01-06 15:14 | Outpatient (BNVA) | payer BC, SELFPAY | PROVIDERS: PCP Internal Medicine; Visit Provider Surgery Vascular Surgery ==

== ENCOUNTER 2024-05-17 09:49 | Emergency (ER) | payer BC, SELFPAY ==
--- NOTE | ~2024-05-17 | XR_ITS ---
EXAMINATION: XR FOOT, LEFT CLINICAL INFORMATION: Pain left foot. COMPARISON: None available. TECHNIQUE: AP, lateral, and oblique views of the left foot. FINDINGS: Small posterior calcaneal spur. Bone mineralization is normal. Minimal degenerative changes in the first metatarsophalangeal joint. XR/XR foot LT min 3V IMPRESSION: Small posterior calcaneal spur. Minimal degenerative changes in the first metatarsophalangeal joint. This study was presented today, May 17, 2024, for interpretation. Stat results provided at this time as requested by referring provider. Electronically signed by: Paola Trujillo MD 05/17/2024 10:56 AM [facility]
[2024-05-17 09:56] VITALS: BP 146/105; PULSE 100; RESP 16; TEMP 36.4; O2SAT 97; BMI 29.2
[2024-05-17 10:59] VITALS: BP 154/98; PULSE 92; RESP 17; TEMP 37.1; O2SAT 94
--- NOTE | 2024-05-17 11:37 | ED_ITS ---
HPI - Extremity Problem General Chief complaint: Extremity Problem Stated complaint: l foot pain Time Seen by Provider: 05/17/24 10:49 Source: patient, RN notes reviewed and old records reviewed Mode of arrival: ambulatory History of Present Illness ED Provider: Demetra Starks PA-C HPI Narrative: 44-year-old male with a past medical history of epilepsy, GERD, presenting to the ED complaining of pain to plantar aspect of left foot times 2-3 weeks. Admits pain worse in the morning or after sitting for prolonged period of time. Denies known injury, trauma, fall, numbness, tingling, fever/chills Related Data Home Medications ?Medication ?Instructions ?Recorded ?Confirmed omeprazole 20 mg capsule,delayed 20 mg PO DAILY 06/11/23 08/05/23 release Previous Rx's ?Medication ?Instructions ?Recorded nicotine 14 mg/24 hr daily 1 patch transdermal DAILY #28 ea 06/11/23 transdermal patch cholecalciferol (vitamin D3) 50 50 mcg PO DAILY #90 tabs 10/04/23 mcg (2,000 unit) tablet carbamazepine 100 mg chewable 100 mg PO BID 30 days #60 tabs 03/16/24 tablet acetaminophen 500 mg tablet 500 mg PO Q6H PRN fever or pain 05/17/24 (Tylenol Extra Strength) #14 tabs naproxen 500 mg tablet 500 mg PO BID PRN pain 10 days #20 05/17/24 tabs Allergies Allergy/AdvReac Type Severity Reaction Status Date / Time No Known Allergies Allergy Verified 05/17/24 09:58 Review of Systems Review of Systems: Yes all other systems are reviewed and are negative Constitutional: Constitutional: Reports as per [facility] Past Medical History Attestation statement: The following information was validated with the patient. Source: old records reviewed Medical History Varicose veins of bilateral lower extremities with pain Overweight (BMI 25.0-29.9) Vitamin D deficiency Smoker Epilepsy GERD (gastroesophageal reflux disease) Surgical History History of hernia surgery Family History Family History Other Family history non-contributory Social History Social History (Reviewed 05/17/24 @ 11:37 by CLAIRE German Housing: House Alcohol intake: current Alcohol intake frequency: a few times a week Alcohol type: beer Patient Tobacco Use Status: Current everyday Tobacco user Cigarettes Per Day: 8 e-Cigarette/Vaping Use: Never Used Advance Directives: No Advance Directives Information Provided: Yes service: No Current occupational status: employed Cognitive needs: No Hearing needs: No Vision needs: No Physical Exam Vital Signs: Vital Signs: Last Vital Signs Temp 98.7 F 05/17/24 12:22 Pulse 92 05/17/24 12:22 Resp 17 05/17/24 12:22 BP 154/98 H 05/17/24 12:22 Pulse Ox 94 05/17/24 12:22 O2 Del Method Room Air 05/17/24 12:22 BMI result Body Mass Index 29.2 Const: General: cooperative, healthy appearing and no acute distress Orientation/consciousness: patient oriented x3 Limitations: no limitations HEENT: Head: Yes normal to inspection and Yes atraumatic Ears: hearing grossly normal bilaterally General nose exam: Normal external nose present Face and sinus: Yes normal facial exam Eyes: General: appearance normal, both eyes and all related structures EOM: EOMs intact bilaterally Neck: Neck: Yes normal visual inspection and Yes no meningeal signs Resp: Effort & Inspection: normal respiratory effort and no respiratory distress Cardio: Rate: regular rate Skin: Rashes: no rashes Wounds: no wounds Neuro: General: patient oriented x3, tone normal and no meningeal signs Cranial nerves: Yes CN's II-XII intact bilaterally Gait exam (Neuro): Normal gait present Extrem: Other: + swelling appreciated to left foot plan tar aspect with tenderness. No appreciable deformity, erythema, ecchymosis or crepitus. Neurovascularly intact. Ankle and knee nontender. Course Course Course Narrative: 1141--XR foot LT min 3V IMPRESSION: Small posterior calcaneal spur. Minimal degenerative changes in the first metatarsophalangeal joint. This study was presented today, May 17, 2024, for interpretation. Stat results provided at this time as requested by referring provider. Results discussed with patient, discussed recommended insoles in shoes and wear ing supportive shoes and follow-up with podiatry. He verbalized understanding including worrisome signs and symptoms and strict return precautions, and when to return to the emergency department. They verbalized understanding and feel safe for discharge at this time. Medications Administered Discontinued Medications Generic Name Dose Route Start Last Admin Trade Name Freq PRN Reason Stop Dose Admin Ketorolac Tromethamine 30 mg 05/17/24 12:08 05/17/24 12:16 Ketorolac Tromethamine 30 Mg/Ml Vial IM 05/17/24 12:09 30 mg ONCE ONE Administration Medical Decision Making Medical Decision Making MDM Narrative: 44-year-old male with a past medical history of epilepsy, GERD, presenting to the ED complaining of pain to plantar aspect of left foot times 2-3 weeks. On exam initially mildly hypertensive, NAD, nontoxic appearing, physical exam as noted above. Concern for plantar fasciitis. No evidence of cellulitis. Lower suspicion for fracture or dislocation. Plan: X-ray, pain control Please refer to course for remaining clinical decision making, interpretation of labs/imaging results, and discussions with consultants and/or family members. Differential Diagnosis Differential Diagnoses: The differential diagnosis associated with the presentation includes As above Radiology Impression Discussion of test interpretation with radiology: I have reviewed the radiologist's reading. External Record Review External record reviewed: Inpatient record, Office record, Outpatient record, Prior outpatient labs, Prior outpatient radiology, Primary care record and Outside ED record Tests considered The following testing was considered but not selected: As above Prescription Management I considered prescription management with: Pain Medication Discharge Plan Discharge Clinical Impression: Plantar fasciitis Patient Disposition: Home, Self-Care Instructions: Plantar Fasciitis (ED) Additional Instructions: Your x-ray shows a small calcaneal spur as well as some arthritic changes You likely have plantar fasciitis We recommended getting insoles for your shoes and supportive shoes There are specific stretches you can do to help with your pain Take Tylenol and Motrin Follow-up with Podiatry If symptoms persist or worsen or pain becomes unbearable return to the ED Prescriptions: New acetaminophen [Tylenol Extra Strength] 500 mg tablet 500 mg PO Q6H PRN (Reason: fever or pain) Qty: 14 0RF naproxen 500 mg tablet 500 mg PO BID PRN (Reason: pain) 10 Days Qty: 20 0RF No Action cholecalciferol (vitamin D3) 50 mcg (2,000 unit) tablet 50 mcg PO DAILY Qty: 90 0RF carbamazepine 100 mg tablet,chewable 100 mg PO BID 30 Days Qty: 60 2RF omeprazole 20 mg capsule,delayed release(DR/EC) 20 mg PO DAILY nicotine 14 mg/24 hr patch 24 hour 1 patch transdermal DAILY Qty: 28 0RF Referrals: Cristopher Sanderson MD [Primary Care Provider] - Jake Albert MD [Physician] - Marco A Albert DPM [Physician] - Stand Alone Forms: Work/School Release Interventions: ED Discharge Assessment Last Done: 05/17/24 12:22 Discharge Date/Time: 05/17/24 12:22 Print Language: Algerian
[2024-05-17] MEDS: Ketorolac Tromethamine 30 MG/ML VIAL IM (12:16)
[2024-05-17 12:22] VITALS: BP 154/98; PULSE 92; RESP 17; TEMP 37.1; O2SAT 94
== END 2024-05-17 12:22 | disposition home or self-care (01) ==
PROVIDERS: Emergency Provider Student in an Organized Health Care Education/Training Program; PCP Internal Medicine
DX: M72.2 Plantar fascial fibromatosis (principal); M79.672 Pain in left foot; M77.32 Calcaneal spur, left foot; G40.909 Epilepsy, unspecified, not intractable, without status epilepticus
CPT/HCPCS: 73630; 96372; 99283; 99284; J1885

== ENCOUNTER 2025-01-20 05:16 | Emergency (ER) | payer BC, SELFPAY ==
--- NOTE | ~2025-01-20 | XR_ITS ---
EXAMINATION: XR RIBS, LEFT CLINICAL INFORMATION: Left flank pain COMPARISON: None available. TECHNIQUE: AP chest. Oblique views left hemithorax. FINDINGS: No consolidation, pleural fissure pneumothorax. No hyperinflation. Cardiomediastinal silhouette size is normal. Mild S-shaped curvature of the thoracolumbar spine. Metallic skin BB marker placed in the lower left hemithorax demonstrated no acute cortical disruption in the adjacent ribs. No acute displaced cortical disruption in the ribs of the left hemithorax. No gross lytic or blastic lesions. XR/XR ribs LT min 3V w CXR1V IMPRESSION: No gross acute displaced rib fracture, left hemithorax. No acute airspace disease. Mild scoliosis, thoracolumbar spine. Electronically signed by: Alvin Monte MD 01/20/2025 08:31 AM EDT
--- NOTE | ~2025-01-20 | CT_ITS ---
EXAMINATION: CT ABDOMEN AND PELVIS WITHOUT CONTRAST CLINICAL INFORMATION: Left flank pain COMPARISON: None available. TECHNIQUE: Multidetector volumetric imaging was performed from the superior aspect of the liver through the pubic symphysis. Sagittal and coronal reformatted images were obtained on the technologist's workstation. This CT examination was performed using dose optimization techniques as appropriate, variously including the following: *Automated exposure control *Adjustment of mA and/or kV according to patient size (this includes techniques or standardized protocols for targeted exams where dose is matched to indication/reason for exam; i.e. extremities or head) *Use of iterative reconstruction technique DLP: 527 mGy centimeter. FINDINGS: Inadequate evaluation of the intra-abdominal organs and vascular structures due to lack of IV contrast. LUNG BASES: No acute airspace disease or gross pulmonary nodules. LIVER, GALLBLADDER, AND BILIARY TREE: Liver measures 15 cm with heterogeneous/patchy decreased attenuation gallbladder is contracted. No pericholecystic fluid collection or gallbladder wall thickening. No intrahepatic or extrahepatic biliary ductal dilatation. PANCREAS: No peripancreatic fluid collections. No main pancreatic ductal dilatation. SPLEEN: 9 cm. ADRENAL GLANDS: No nodular lesions. KIDNEYS AND URETERS: No hydronephrosis. No nephrolithiasis. No dilatation of the ureters. BLADDER: Fluid-filled. GASTROINTESTINAL TRACT: Small hiatal hernia. Abundant stool throughout the large intestine. Fecal material in the distal ileal loops. No gross intestinal wall thickening. No intestinal obstruction pattern. No pneumatosis intestinalis. Appendix is normal. No ascites. No gross diverticula within the colon. Nondistended stomach with questionable wall thickening. No pneumoperitoneum. No fluid collections in the peritoneal cavity. ABDOMINAL WALL: Fat-containing umbilical hernia, small. LYMPH NODES: No specific prominent inguinal. VASCULAR: No aneurysm, abdominal aorta. No gross calcified plaques prominent pampiniform plexus, bilaterally.. PELVIC VISCERA: Dystrophic calcification in nonenlarged level region. OSSEOUS STRUCTURES: S-shaped curvature thoracolumbar spine. No acute fracture or listhesis. Bony pelvis is intact.. CT/CT abdomen pelvis wo IV con IMPRESSION: No hydronephrosis or nephrolithiasis. Small fat-containing umbilical hernia. Concerning mild gastroenteritis. Hepatic steatosis. Fleischner guidelines were followed. Electronically signed by: Alvin Monte MD 01/20/2025 09:03 AM EDT
[2025-01-20 05:19] VITALS: BP 175/102; PULSE 81; RESP 20; TEMP 36.6; O2SAT 99; BMI 30.9
[2025-01-20 05:38] LABS: MANUAL DIFF FLAG NO
[2025-01-20 05:41] LABS: Hematocrit 44.5 % (42.0-52.0); Hemoglobin 15.6 g/dl (14.0-18.0); Imm Gran Abs Auto 0.03 X10*3/uL (0.00-0.03); Imm Gran Pct Auto 0.5 % (0.0-0.4); Lymphocytes Absolute Auto 2.7 X10*3/uL (1.2-4.9); Mean Corpuscular HGB Conc 35.1 g/dl (31.0-36.0); Mean Corpuscular Hemoglobin 30.3 pg (27.0-33.0); Mean Corpuscular Volume 86.4 fL (80.0-98.0); NRBC Abs Auto 0.000 X10*3/uL (0.0-0.012); NRBC Pct Auto 0.0 /100WBC (0.0-0.2); Platelet Count 174 X10*3/uL (160-400); Red Blood Count 5.15 X10*6/uL (4.60-5.80); White Blood Count 5.9 X10*3/uL (4.8-10.8)
[2025-01-20 06:03] LABS: Alanine Aminotransferase 32 U/L (0-40); Albumin Level 4.1 g/dL (3.5-5.0); Alkaline Phosphatase 50 U/L (39-117); Anion Gap 12 (12-20); Aspartate Amino Transferase 29 U/L (5-37); Blood Urea Nitrogen 7 mg/dL (9-16); Calcium 8.3 mg/dL (8.4-10.2); Carbon Dioxide 24 mmol/L (22-29); Chloride 108 mmol/L (96-108); Creatinine Clr Calc Pharmacy 112.0; Estimated Glomerular Filt Rate > 60; Potassium 4.4 mmol/L (3.3-5.1); Sodium 140 mmol/L (135-145); Total Protein 6.5 g/dL (6.5-8.0)
--- OUTSIDE RECORDS SUMMARY | 2025-01-20 06:08 | XMS_ITS | Data Portability ---
Author Organization [facility], [id number] Address [address] [place] [address] Assessment No assessment recorded. Plan of Treatment Reminders Order Date Submit Date Provider Last Modified By Organization Details Last Modified Time Details Appointments None recorded. Lab None recorded. Referral physical therapist referral 2022 023 [email or web address] Not available 08:20:26 Procedures None recorded. Surgeries None recorded. Imaging None recorded. Medication Orders ibuprofen 600 mg tablet [address] [facility] #[id number], [address] [place], [address], 3 14:29:47 methocarbam ol 750 mg tablet [address] [facility] [facility][id number], [address] [place], [address], 3 14:33:27 Patient TargetsNo targets recorded. Patient InstructionsNo instructions recorded. Reason for Referral Physical Therapist Referral for Low back pain Referring Physician: Ulises Cuevas, Urgent Care, Encounter Date: 11/01/2022 Problems Name Problem SNOMED Code Status Onset Date Resolution Date Notes Provider Name and Address Organization Details Recorded Time Heartburn 85485211 Active 023 IRIS ANJELICA peck, PA - [facility] 3 13:50:12 Epilepsy 01167200 Active 023 IRIS COUVERTDARYL null, PA - [facility] 3 13:50:17 Problem Notes None recorded. Procedures Surgical History Date Name Laterality Status Provider Name and Address Organization Details Recorded Time hernia repair completed SNOW DEJESUS PA - [facility] 11/01/2022 13:51:03 Imaging Results None recorded. Procedure Notes None recorded. Medical Equipment None Reported. Allergies No known drug allergies Medications Name Sig Start Date Stop Date Status Note LastModified by Organization Details LastModified Time methocarbamo l 750 mg tablet 1 po nightly for back pain this medication makes you sleepy 2022 active Not Available Not Available Not Avai lable carbamazepin e 100 mg chewable tablet TAKE 1 TABLET BY MOUTH TWICE A DAY active Not Available Not Available No t Available ibuprofen 600 mg tablet 1 po q 8 h with for for back pain 2022 active Not Available Not Available Not Avai lable omeprazole active Not Available Not Av ailable Not Available Vitals Date Recorded Body height Body mass index (BMI) Body weight Body temperature Respiratory rate Heart rate Oxygen saturation Oxygen saturation in Arterial blood by Pulse oximetry Systolic And Diastolic Provider Name and Address Organization Details Last Updated DateTime 165.1 cm 31.1 kg/m2 88933.7 7 g 98 [degF] 18 /min 100 /min 99 % 99 % 132/87 mm[Hg] SNOW BAUTISTA Deven PA - [facility] 13:52:24 Social History Question Answer Notes LastModified by Biglion Details LastModified Time Tobacco Smoking Status Current Every Day Smoker SNOW ANJELICA liv PA - [facility] 11/01/2022 13:50:45 What Is Your Water Source? City Information not available 11/01/2022 What Is Your Heat Source? Other Information not available 11/01/2022 Have You Had Direct Contact, Or Contact During Intimacy, With Monkeypox Rash, Scabs, Or Body Fluids From A Person With Monkeypox? No Information not available 11/01/2022 Have You Recently Traveled Abroad? No Information not available 11/01/2022 Sex: Unknown Functional Status Question Answer Note LastModified by Biglion Details LastModified Time Do you use any illicit or recreational drugs? No Information not available 11/01/2022 Do you or have you ever used any other forms of tobacco or nicotine? No Information not available 11/01/2022 What is your level of alcohol consumption? Occasional Information not available 11/01/2022 Mental Status None recorded. Family History Relationship Description Onset Age of this Age Resolved Age Notes LastModified by Organization Details LastModified Time Father No current problems or disability Not available 13:50:24 Mother No current problems or disability Not available 13:50:24 Medical History No medical history recorded. Past Encounters Encounter ID Performer Location Encounter Start Date Encounter Closed Date Diagnosis/Indication Diagnosis SNOMED-CT Code Diagnosis ICD10 Code Diagnosis Note [id number] [facility] [address] [address] 08/30/2021 16:17:41 08/30/2021 17:36:16 [id number] Ulises Cuevas DO [facility] [address] [address] 11/01/2022 11:47:05 11/01/2022 14:35:37 Low back pain 807313691 M54.50 Likely muscular originWill Rx NSAID to alt w/ tylenol and muscle relaxerTop ical analgesicP T referralRe viewed with patient potential adverse side effects of the medication .Exercise/ stretching , massage, heat applicatio n, support, proper lifting techniqueS x may last for 4-6 weeksRTC if persistent sx or onset neurologic al sx like motor weakness/l oss of sensationf /u with your PCP in 1 weekFurthe r evaluation if sx persists or worsen Health Concerns Section Related Observation LastModified by Organization Detai ls LastModified Time None Recorded Concern Status LastModified by Organization Details LastModified Time None Recorded Advance Directives Directive None Recorded Payers Insurance Date Sequence Insurance Name Policy Number Policy Cui Covered Member ID Cui Member ID Guarantor Name 11/28/2022 1 [employer] [id number] Ugo Jarrell [id number] Ugo Nichole 11/28/2022 1 [employer] - [employer] (POS) [id number] Ugo Jarrell [id number] Ugo Nichole Notes Date Note Type Note Provider Name and Address Organization Details Recorded Time 11/01/2022 text/html 42 yo male c/o l ow back pain x 4 days 7/10 pain scale No radiationNo numbness/tinglingNo weaknessNo foot dropNo saddle anesthesiaNo incontinenceNo traumaNo rash tried ibu with some improvementpain worse with heavy lifting Ulises Cuevas, DO [address] [place], [address], PA - [facility] 11/01/2022 14:36:13
--- NOTE | 2025-01-20 08:00 | ED.GENADULT ---
HPI - General Adult General Chief complaint: Back Pain/Injury Stated complaint: left side pain & abd pain Time Seen by Provider: 01/20/25 07:53 Source: patient and family Mode of arrival: ambulatory Limitations: no limitations History of Present Illness ED Provider: DR. Mckenzie HPI narrative: 44-year-old male with no significant past medical history presented for evaluation of left flank pain x2 days. Pain started 2 days ago after helped his sister to install AC on the window, patient felt the pain next day is severe 10/10 pain localized to the left lower chest area with no radiation, pain is worse with movement and taking a deep breath. No dysuria, no frequency urination, no hematuria, no fever, no chills. No history of kidney stones in the past, normal bowel movement this morning, passing flatus normally, no nausea, no vomiting. Chronic right lower extremity varicose vein and swelling for years, no history of recent traveling. Related Data Home Medications ?Medication ?Instructions ?Recorded ?Confirmed omeprazole 20 mg capsule,delayed 20 mg PO DAILY 06/11/23 08/05/23 release Previous Rx's ?Medication ?Instructions ?Recorded nicotine 14 mg/24 hr daily 1 patch transdermal DAILY #28 ea 06/11/23 transdermal patch cholecalciferol (vitamin D3) 50 50 mcg PO DAILY #90 tabs 10/04/23 mcg (2,000 unit) tablet acetaminophen 500 mg tablet 500 mg PO Q6H PRN fever or pain 05/17/24 (Tylenol Extra Strength) #14 tabs naproxen 500 mg tablet 500 mg PO BID PRN pain 10 days #20 05/17/24 tabs carbamazepine 100 mg chewable 100 mg PO BID 30 days #60 tabs 11/29/24 tablet cyclobenzaprine 10 mg tablet 10 mg PO TID PRN muscle spasm #10 01/20/25 tabs ibuprofen 600 mg tablet 600 mg PO Q8H PRN pain #10 tabs 01/20/25 Allergies Allergy/AdvReac Type Severity Reaction Status Date / Time No Known Allergies Allergy Verified 01/20/25 05:20 Review of Systems Review of Systems: All other systems are reviewed and are negative Constitutional: Reports as per HPI and Reports no additional constitutional complaints Eyes: Reports as per HPI and Reports no additional eye complaints Reports system reviewed and no additional complaints, except as documented Cardiovascular: Reports as per HPI and Reports no additional cardiovascular complaints Respiratory: Reports as per HPI and Reports no additional respiratory complaints Gastrointestinal: Reports as per HPI and Reports no additional gastrointestinal complaints Genitourinary: Reports no additional female genitourinary complaints Musculoskeletal: Reports no additional musculoskeletal complaints Skin/Breast: Reports system reviewed and no additional complaints, except as docu Psychiatric: Reports no additional psychiatric complaints Endocrine: Reports no additional endocrine complaints Hematologic/Lymphatic: Reports no additional hematologic/lymphatic complaints Allergic/Immunologic: Reports no additional allergic/immunologic complaints Reports system reviewed and no additional complaints, except as documented and Reports Abnormal speech present [facility] Past Medical History Medical History Varicose veins of bilateral lower extremities with pain Overweight (BMI 25.0-29.9) Vitamin D deficiency Smoker Epilepsy GERD (gastroesophageal reflux disease) Surgical History History of hernia surgery Family History Family History Other Family history non-contributory Social History Social History Housing: House Alcohol intake: current Alcohol intake frequency: a few times a week Alcohol type: beer Patient Tobacco Use Status: Current everyday Tobacco user Cigarettes Per Day: 8 e-Cigarette/Vaping Use: Never Used Advance Directives: No Advance Directives Information Provided: Yes service: No Current occupational status: employed Cognitive needs: No Hearing needs: No Vision needs: No Physical Exam ED Vital Signs: Vital Signs - 24 hr 01/20/25 05:19 Temperature 97.8 F Pulse Rate 81 Respiratory Rate 20 Blood Pressure 175/102 H Pulse Oximetry 99 Oxygen Delivery Method Room Air BMI result Body Mass Index 30.9 Vital signs have been reviewed and appear to be correct. Blood pressure elevated. Heart rate normal. Respiratory rate normal. Temperature normal. Oxygen saturation normal. Appearance: Alert. Oriented X3. acute distress secondary to left flank pain. Head: Normal external exam. Normocephalic. Atraumatic. No Birch signs noted. No raccoon eyes noted Eyes: PERRLA. EOMI. Conjunctiva and sclera normal. Eyelids normal. ENT: TM's Normal. Pharynx normal. Uvula midline. Moist mucous membranes. No trismus noted. No drooling noted. No muffled voice noted. Neck: Normal inspection. Neck supple. FROM. No adenopathy. Thyroid Normal. No meningeal signs. No neck mass noted. CVS: Normal heart rate and rhythm. Heart sound normal. No murmurs noted. Pulses normal throughout. Respiratory: No respiratory distress. Painless inspiration. Breath sounds normal. No wheezes/rales/rhonchi noted. Chest nontender. No accessory muscle usage noted or decreased air movement noted. Abdomen: Soft and nontender. Bowel sounds normal in all 4 quadrants. No distention noted. No organomegaly noted. No visible injury noted. Back: Left CVA tenderness. Full range of motion noted. Skin: Skin warm and dry. Normal skin color. Normal skin turgor. No rashes/lesions/lacerations noted. Extremities: No lower extremity edema. Extremities exhibit normal range of motion. Extremities nontender. Neuro: Oriented X 3. Cranial nerve exam: II-XII are grossly intact No motor deficit. No sensory deficit. Reflexes normal. Course Reevaluation(s) Reevaluation #1: Came in with 2 days of left flank/lower chest pain after installing heavy AC on window, patient now feels better with pain medication. UA/CT/rib x-ray no kidney stone, no hydronephrosis, no rib fracture. Time: 11:13 Medications Administered Discontinued Medications Generic Name Dose Route Start Last Admin Trade Name Freq PRN Reason Stop Dose Admin Ibuprofen 600 mg 01/20/25 07:58 01/20/25 08:35 Ibuprofen 600 Mg Tablet PO 01/20/25 07:59 600 mg ONCE ONE Administration Oxycodone HCl 5 mg 01/20/25 09:06 01/20/25 09:26 Oxycodone Hcl Immed Release 5 Mg Tablet PO 01/20/25 09:07 5 mg ONCE ONE Administration Medical Decision Making Differential Diagnosis Differential Diagnoses: The differential diagnosis associated with the presentation includes (Renal colic, pyelonephritis, myofascial pain, rib fracture.) Admission/Observation Consideration of admission/observation: Escalation of care including admission/observation considered Lab Data MDM Lab Attestation statement: I reviewed the patient's lab results. 01/20/25 05:34 01/20/25 05:34 Labs: Lab Results 01/20/25 01/20/25 01/20/25 Range/Units 05:34 09:13 09:16 WBC 5.9 (4.8-10.8) X10*3/uL RBC 5.15 (4.60-5.80) X10*6/uL Hgb 15.6 (14.0-18.0) g/dl Hct 44.5 (42.0-52.0) % MCV 86.4 (80.0-98.0) fL MCH 30.3 (27.0-33.0) pg MCHC 35.1 (31.0-36.0) g/dl RDW 13.2 (11.0-16.0) % Plt Count 174 (160-400) X10*3/uL MPV 8.5 L (9.4-12.4) fL Immature Gran % (Auto) 0.5 H (0.0-0.4) % Neut % (Auto) 41.0 L (45-73) % Lymph % (Auto) 44.9 H (20-40) % Giles % (Auto) 8.8 (2-11) % Eos % (Auto) 3.6 (0-4) % Baso % (Auto) 1.2 (0-2) % Lymph # (Auto) 2.7 (1.2-4.9) X10*3/uL Giles # (Auto) 0.5 (0.1-1.2) X10*3/uL Eos # (Auto) 0.2 (0.0-0.4) X10*3/uL Baso # (Auto) 0.1 (0.0-0.2) X10*3/uL Abs Immat Gran (auto) 0.03 (0.00-0.03) X10*3/uL Absolute Neuts (auto) 2.4 (2.0-8.3) x10*3/uL Absolute Nucleated RBC 0.000 (0.0-0.012) X10*3/uL Nucleated RBC % (auto) 0.0 (0.0-0.2) /100WBC D-Dimer High Sensitivty < 150 NG/ML Sodium 140 (135-145) mmol/L Potassium 4.4 (3.3-5.1) mmol/L Chloride 108 (96-108) mmol/L Carbon Dioxide 24 (22-29) mmol/L Anion Gap 12 (12-20) BUN 7 L (9-16) mg/dL Creatinine 0.82 (0.5-1.4) mg/dL Estim Creat Clear Calc 112.0 Estimated GFR > 60 Random Glucose 98 (60-115) mg/dL Calcium 8.3 L (8.4-10.2) mg/dL Total Bilirubin 0.3 (0.0-1.0) mg/dL AST 29 (5-37) U/L ALT 32 (0-40) U/L Alkaline Phosphatase 50 (39-117) U/L Total Protein 6.5 (6.5-8.0) g/dL Albumin 4.1 (3.5-5.0) g/dL Urine Color Yellow Urine Appearance Clear Urine pH 5.5 (5.0-9.0) Ur Specific [place] 1.015 (1.005-1.025) Urine Protein Negative (Neg-Trace) mg/dL Urine Glucose (UA) Negative (Negative) mg/dL Urine Ketones Negative (Negative) mg/dL Urine Blood Negative (Negative) Urine Nitrite Negative (Negative) Ur Leukocyte Esterase Negative (Negative) Independent Interpretation I performed an independent interpretation of an: Plain X-Ray (Left ribs/chest:No gross acute displaced rib fracture, left hemithorax. No acute airspace disease. Mild scoliosis, thoracolumbar spine. ) and CT Scan (Abdomen pelvis:No hydronephrosis or nephrolithiasis. Small fat-containing umbilical hernia. Concerning mild gastroenteritis. Hepatic steatosis. ) Radiology Impression Discussion of test interpretation with radiology: I have reviewed the radiologist's reading. Discharge Plan Discharge Clinical Impression: Myofascial muscle pain Patient Disposition: Home, Self-Care Instructions: Musculoskeletal Pain (ED) Prescriptions: New ibuprofen 600 mg tablet 600 mg PO Q8H PRN (Reason: pain) Qty: 10 0RF cyclobenzaprine 10 mg tablet 10 mg PO TID PRN (Reason: muscle spasm) Qty: 10 0RF No Action cholecalciferol (vitamin D3) 50 mcg (2,000 unit) tablet 50 mcg PO DAILY Qty: 90 0RF carbamazepine 100 mg tablet,chewable 100 mg PO BID 30 Days Qty: 60 1RF acetaminophen [Tylenol Extra Strength] 500 mg tablet 500 mg PO Q6H PRN (Reason: fever or pain) Qty: 14 0RF naproxen 500 mg tablet 500 mg PO BID PRN (Reason: pain) 10 Days Qty: 20 0RF omeprazole 20 mg capsule,delayed release(DR/EC) 20 mg PO DAILY nicotine 14 mg/24 hr patch 24 hour 1 patch transdermal DAILY Qty: 28 0RF Referrals: Cristopher Snaderson MD [Primary Care Provider, Internal Medicine] Stand Alone Forms: Work/School Release Print Language: Choose Not To Answer
[2025-01-20] MEDS: oxyCODONE HCl Immed Release 5 MG TABLET PO (09:26)
[2025-01-20 09:28] LABS: Appearance Urine Clear; Glucose Urine UA Negative (Negative); PH 5.5 (5.0-9.0); Specific Gravity - Urine 1.015 (1.005-1.025)
[2025-01-20 09:43] LABS: D Dimer High Sensitivity < 150 NG/ML
[2025-01-20 11:30] VITALS: BP 160/80; PULSE 81; RESP 20; TEMP 36.6; O2SAT 99
== END 2025-01-20 11:31 | disposition home or self-care (01) ==
PROVIDERS: Emergency Provider Emergency Medicine; PCP Internal Medicine
DX: R10.9 Unspecified abdominal pain (principal)
CPT/HCPCS: 36415; 71101; 74176; 80053; 81003; 85025; 85379; 99284

== ENCOUNTER → 2025-01-20 07:58 | Outpatient (BNV) | payer BC, SELFPAY | PROVIDERS: Emergency Provider Emergency Medicine; PCP Internal Medicine; Visit Provider Radiology Diagnostic Radiology | DX: K42.9 Umbilical hernia without obstruction or gangrene (principal); K76.0 Fatty (change of) liver, not elsewhere classified; R07.89 Other chest pain | CPT/HCPCS: 71101; 74176 ==

== ENCOUNTER 2025-03-01 15:59 | Outpatient (AMB) | payer BC, SELFPAY ==
[2025-03-01 16:06] VITALS: BP 150/100; PULSE 86; O2SAT 98; BMI 29.5
--- NOTE | 2025-03-01 16:06 | A.OFFPC_ITS ---
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: No Did you have a dental problem in the last 6 months where you did not have access to dental care?: No Was dental information given to patient?: No HPI f/u urgent care high bp HPI Details Patient comes in today for follow up for his blood pressure, which has been running high lately - patient has not been seen since October 2023 He reports that he has been experiencing on and off headaches lately, often in the morning, and that he's had to take some OTC Tylenol or Ibuprofen for relief lately Notes that it usually takes about an hour or so after he takes Tylenol or Ibuprofen before he would experience some relief of his headaches and this has been causing him to arrive at work late frequently over the past few weeks or so His BP is again noted to be high today and he reports that he has a mild headache at present He denies any dizziness Denies any chest pains, no SOB No nausea/vomiting, no abdominal pain No change in bowel habits noted [facility] Medical History Essential hypertension Varicose veins of bilateral lower extremities with pain Overweight (BMI 25.0-29.9) Vitamin D deficiency Smoker Epilepsy GERD (gastroesophageal reflux disease) Surgical History History of hernia surgery Family History Brother Hypertension Mother Hypertension Social History Housing: House Alcohol intake: current Alcohol intake frequency: a few times a week Alcohol type: beer Patient Tobacco Use Status: Current everyday Tobacco user Cigarettes Per Day: 8 e-Cigarette/Vaping Use: Never Used service: No Current occupational status: employed Cognitive needs: No Hearing needs: No Vision needs: No Questionnaire PHQ-9 Over the last 2 weeks, how often have you been bothered by any of the following problems? 1. Little interest or pleasure in doing things: not at all 2. Feeling down, depressed, or hopeless: not at all 3. Trouble falling or staying asleep, or sleeping too much: not at all 4. Feeling tired or having little energy: several days 5. Poor appetite or overeating: not at all 6. Feeling bad about yourself - or that you are a failure or have let yourself or your family down: not at all 7. Trouble concentrating on things, such as reading the newspaper or watching television: not at all 8. Moving or speaking so slowly that other people could have noticed. Or the opposite - being so fidgety or restless that you have been moving around a lot more than usual: not at all 9. Thoughts that you would be better off or of hurting yourself in some way: not at all Total score: 1 Depression Screening Interpretation: Negative Depression Screening Done: Yes 93602 - PHQ-9 Billing: Yes Source: Developed by Drs. Vick Restrepo, Ashley Moody, Al Gonzalez and colleagues, with an educational kareem from [employer]. Thrive Questionnaire Date Thrive assessed: 03/01/25 I am a: Patient What is your living situation today?: I have a steady place to live Within the past 12 months, did the food you bought not last and you didn't have the money to get more?: I choose not to answer this question Within the past 12 months, did you worry whether your food would run out before you got money to buy more?: Never true Do you have trouble paying for medicines?: No Do you have trouble getting transportation to medical appointments?: No Do you have trouble paying your heating and electricity bill?: No Do you have trouble taking care of your child, family member or friend?: No Do you have trouble with day-to-day activities such as bathing, preparing meals, shopping, managing finances, etc.?: No Are you currently unemployed and looking for a job?: No Are you interested in more education?: No Please select the resources that you would like help with: None Currently or been in a relationship where the following occur: I choose not to answer THRIVE Score: 0 AUDIT C Alcohol Use Questionnaire (AUDIT-C) 1. How often do you have a drink containing alcohol?: 2-3 times a week 2. How many drinks containing alcohol do you have on a typical day when you are drinking?: 7 to 9 3. How often do you have six or more drinks on one occasion?: Less than monthly Total Score: 7 Score Reviewed/Action Taken: Yes DEMARIO-7 AMB Questionnaire DEMRAIO-7 Date DEMARIO - 7 assessed: 03/01/25 Feeling nervous, anxious, or on edge: 1 = Several days Not being able to stop or control worryin = Not at all Worrying too much about different things: 0 = Not at all Trouble relaxin = Not at all Being so restless that it is hard to sit still: 0 = Not at all Becoming easily annoyed or irritable: 0 = Not at all Feeling afraid as if something awful might happen: 0 = Not at all Total DEMARIO-7 score (0-4 normal; 5-9 mild; 10-14 moderate; 15-21 severe): 1 Source: Developed by Drs. Vick Rsetrepo, Ashley Moody, Al Gonzalez and colleagues, with an educational kareem from [employer]. Review of Systems Const Denies chills, Denies fatigue, Denies fever(s) and Reports headache(s) (on and off lately) ENT Denies dysphagia, Denies dizziness, Denies otalgia, Reports headache(s) (on and off lately), Denies neck pain, Denies odynophagia and Denies sore throat Card Denies chest pain, Denies palpitations and Denies dyspnea Resp Denies cough and Denies dyspnea GI Denies abdominal pain, Denies constipation, Denies dysphagia, Denies heartburn, Denies diarrhea, Denies nausea, Denies odynophagia and Denies vomiting Denies dysuria, Denies nocturia and Denies urinary frequency Musc Denies back pain and Denies neck pain Skin/Breast Denies rash Neuro Denies dizziness and Reports headache(s) (on and off lately) Endo Denies fatigue and Denies palpitations Physical exam (Primary Care) Vital Signs: Last Vital Signs Pulse 86 03/01/25 16:06 BP 140/100 H 03/01/25 16:41 Pulse Ox 98 03/01/25 16:06 Oxygen Delivery Method Room Air 03/01/25 16:06 BMI result Body Mass Index 29.5 Tobacco/Smoking Status: Tobacco use Status Tobacco use date assessed 03/01/25 03/01/25 16:11 Patient Tobacco Use Status Current everyday Tobacco 03/01/25 16:11 e-Cigarette/Vaping Use Never Used 03/01/25 16:11 PHQ-9: PHQ-9 Score PHQ-9: Total score 1 05/16/25 04:06 Depression Screening Interpretation: Negative Thrive Assessment: Date of Thrive Assessment Date Thrive assessed 03/01/25 03/01/25 16:11 Currently or been in a relationship where the following occur: I choose not to answer Const General: no acute distress and alert HENMT Throat: Yes posterior oropharynx normal and Yes tonsils normal Neck Neck: Yes supple and No lymphadenopathy Thyroid: Thyroid normal Resp Auscultation: clear to auscultation bilaterally, no rales and no wheezes Cardio Rate: regular rate Rhythm: regular rhythm Heart sounds: no murmurs GI Palpation (GI): Soft to palpation and nontender Auscultation: normal bowel sounds General: Yes no CVA tenderness Back/Spine/Pelvis Back: no CVA tenderness Thoracic/Lumbar Spine: No lumbar spinal tenderness Skin Rashes: no rashes Extrem General: Yes no clubbing, cyanosis or edema Coding Level of Care Code Est Pt Level 4 (23689) Diagnoses Essential hypertension I10 Varicose veins of bilateral lower extremities with pain I83.813 Nonintractable epilepsy without status epilepticus, unspecified epilepsy type G40.909 Epilepsy type: unspecified Intractability: not intractable Status epilepticus: without status epilepticus Gastroesophageal reflux disease without esophagitis K21.9 Esophagitis presence: without esophagitis Overweight (BMI 25.0-29.9) E66.3 Additional Codes PHQ-9 - 99797 - PHQ-9 Billing: Yes ([id number]) Assessment & Plan Assessment & Plan (1) Essential hypertension: Code(s): I10 - Essential (primary) hypertension Category: Medical Plan: Discussed low sodium diet - goal is systolic BP of 120 mm or less Will start patient on Lisinopril 5 mg QD He is also instructed to continue monitoring his bloos pressure regularly (2) Varicose veins of bilateral lower extremities with pain: Code(s): I83.813 - Varicose veins of bilateral lower extremities with pain Category: Medical Plan: Follow up with vascular surgery as scheduled (3) Epilepsy: Comment: last seizure about 2012 Code(s): G40.909 - Epilepsy, unspecified, not intractable, without status epilepticus Category: Medical Qualifiers: Epilepsy type: unspecified Intractability: not intractable Status epilepticus: without status epilepticus Qualified Code(s): G40.909 - Epilepsy, unspecified, not intractable, without status epilepticus Plan: Patient reports NO seizured for over 10 years now Continue Carbamazepine 100 mg BID (4) GERD (gastroesophageal reflux disease): Code(s): K21.9 - Gastro-esophageal reflux disease without esophagitis Category: Medical Qualifiers: Esophagitis presence: without esophagitis Qualified Code(s): K21.9 - Gastro-esophageal reflux disease without esophagitis Plan: Dietary restrictions reinforced Continue Omeprazole 20 mg QD (5) Overweight (BMI 25.0-29.9): Code(s): E66.3 - Overweight Category: Medical Plan: Reinforced diet/exercise as tolerated/lose weight Plan Follow up in 2 months Medications: New lisinopril 5 mg PO DAILY 30 tabs 3RF 30 days
[2025-03-01 16:41] VITALS: BP 140/100
== END 2025-03-01 16:44 | disposition home or self-care (01) ==
LOC: HO.HMCH 16:01
PROVIDERS: PCP Internal Medicine; Visit Provider Internal Medicine
DX: I10 Essential (primary) hypertension (principal); I83.813 Varicose veins of bilateral lower extremities with pain; G40.909 Epilepsy, unspecified, not intractable, without status epilepticus; K21.9 Gastro-esophageal reflux disease without esophagitis; E66.3 Overweight

== ENCOUNTER → 2025-03-01 15:59 | Outpatient (BNVA) | payer BC, SELFPAY | PROVIDERS: PCP Internal Medicine; Visit Provider Internal Medicine | DX: I10 Essential (primary) hypertension (principal) | CPT/HCPCS: 96127 ==

== ENCOUNTER 2025-05-02 15:51 | Outpatient (AMB) | payer BC, SELFPAY ==
[2025-05-02 16:14] VITALS: BP 138/86; PULSE 102; RESP 18; TEMP 36.3; O2SAT 98; BMI 30.7
--- NOTE | 2025-05-02 16:14 | MHC.OFFVIS ---
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 He was started on amolidpine 5 mg for elevated blood pressure. Since has come down but remains above goal. He denies any side effects from the medication. He consumes coffee in the morning and alcohol on weekends, which may influence his blood pressure. He has reduced his salt intake as per medical advice, avoiding high-sodium foods. The patient experiences intermittent leg pain due to varicose veins and has been advised to walk more and use compression stockings. He smokes about half a pack of cigarettes daily and is encouraged to reduce smoking to improve circulation and decrease stroke risk. [facility] Medical History Varicose veins of bilateral lower extremities with pain Overweight (BMI 25.0-29.9) Vitamin D deficiency Smoker Epilepsy GERD (gastroesophageal reflux disease) Surgical History History of hernia surgery Family History Brother Hypertension Mother Hypertension Social History Housing: House Alcohol intake: current Alcohol intake frequency: a few times a week Alcohol type: beer Patient Tobacco Use Status: Current everyday Tobacco user Cigarettes Per Day: 8 e-Cigarette/Vaping Use: Never Used service: No Current occupational status: employed Cognitive needs: No Hearing needs: No Vision needs: No Review of Systems Const Denies body aches, Denies chills, Denies fever(s), Denies headache(s) and Denies poor appetite Eyes Reports no additional complaints ENT Denies dysphagia, Denies dizziness, Denies headache(s) and Denies odynophagia Card Denies chest pain, Denies syncope, Denies edema, Denies irregular heart rhythm, Denies lightheadedness and Denies dyspnea Resp Denies cough and Denies dyspnea GI Denies abdominal pain, Denies constipation, Denies dysphagia, Denies diarrhea, Denies nausea, Denies odynophagia and Denies vomiting Reports no additional complaints Musc Denies abnormal gait and Reports other (intermittent leg pain) Skin/Breast Reports system reviewed and no additional complaints, except as documented Neuro Denies Abnormal speech present, Denies abnormal gait, Denies dizziness, Denies syncope and Denies headache(s) Psych Reports no additional complaints Physical Exam Vital Signs: Last Vital Signs Temp 97.3 F 05/02/25 16:14 Pulse 102 H 05/02/25 16:14 Resp 18 05/02/25 16:14 BP 138/86 05/02/25 16:14 Pulse Ox 98 05/02/25 16:14 Oxygen Delivery Method Room Air 05/02/25 16:14 BMI result Body Mass Index 30.7 Const General: healthy appearing, no acute distress, alert and awake Nutritional Appearance: well nourished Orientation/consciousness: oriented to person, oriented to place and oriented to time HEENT Ears: TM's normal bilaterally General nose exam: Normal nasal mucous membranes and turbinates present Eyes Conjunctivae: conjunctivae normal Sclerae: sclerae normal Pupils: Equal, round and reactive pupils present Neck Neck: Yes no lymphadenopathy and Yes no JVD Thyroid: Thyroid normal Carotids: no bruits Resp Effort & Inspection: normal respiratory effort and not tachypneic Auscultation: no crackles, no rales, no rhonchi and no wheezes Cardio Rate: regular rate Rhythm: regular rhythm Heart sounds: no murmurs and normal S1 and S2 GI Palpation (GI): Soft to palpation, nontender, no hepatomegaly and no splenomegaly Auscultation: normal bowel sounds Skin General skin exam: no rashes or lesions noted and dry skin Neuro General: oriented to person, oriented to place and oriented to time Cranial nerves: Yes Equal, round and reactive pupils present Speech: No Abnormal speech present Gait exam (Neuro): Normal gait present Motor exam (neuro): no tremor noted Extrem Right upper extremity: full ROM Left upper extremity: full ROM Right lower extremity: full ROM and lower leg (varicose veins); no edema Left lower extremity: full ROM; no edema Psych Mental Status: mental status grossly normal Speech and movement: Normal speech and movement present Affect: normal affect Attitude: cooperative Thought process: Normal thought process present Assessment & Plan Assessment & Plan (1) HTN (hypertension): Code(s): I10 - Essential (primary) hypertension Category: Medical Qualifiers: Hypertension type: unspecified Qualified Code(s): I10 - Essential (primary) hypertension Plan: The patient's blood pressure is currently managed with 5 mg of medication, but it remains slightly elevated at 138/86 mmHg. The plan includes increasing the dosage to 10 mg daily and monitoring blood pressure at home. Lifestyle changes, such as reducing salt intake and limiting alcohol, are recommended to support blood pressure control. (2) Varicose veins of bilateral lower extremities with pain: Code(s): I83.813 - Varicose veins of bilateral lower extremities with pain Category: Medical Plan: The patient is advised to manage calf pain from varicose veins by increasing circulation through walking and using compression stockings. Smoking cessation is recommended to enhance circulation and reduce the risk of complications. Medications: New lisinopril 10 mg PO DAILY 30 tabs 3RF Discontinued lisinopril Discontinued Reason: Doctor's Order 5 mg PO DAILY 30 days 30 tabs 3RF Coding Level of Care Code Est Pt Level 3 (57655) Diagnoses Hypertension, unspecified type I10 Hypertension type: unspecified Varicose veins of bilateral lower extremities with pain I83.813 Time Spent (min) 29
== END 2025-05-02 16:54 | disposition home or self-care (01) ==
LOC: HO.HMCH 15:52
PROVIDERS: PCP Internal Medicine
DX: I10 Essential (primary) hypertension (principal); I83.813 Varicose veins of bilateral lower extremities with pain

== ENCOUNTER 2025-06-07 15:54 | Outpatient (AMB) | payer BC, SELFPAY ==
--- NOTE | 2025-06-07 16:03 | MHC.PC.OV ---
Vital Signs 06/07/25 16:04 Height 5 ft 4 in Weight 184 lb 8 oz BMI 31.7 BP 114/72 Blood Pressure Location Lt brachial Position Sitting Respiration 18 Pulse 86 Pulse Source Pulse Oximeter Temp Source Temporal Artery Scan Pulse Oximetry (%) 97 Oxygen Delivery Method Room Air Intake Visit Reasons: 1 month f/u Manager Quantitative Required: No Accompanied by: Self / Same As Patient Allergies No Known Allergies Allergy (Verified 06/07/25 16:45) Medication List - Last Reconciled 06/07/25 by PAUL Chowdhury acetaminophen (Tylenol Extra Strength) 500 mg PO Q6H PRN carbamazepine 100 mg PO BID 30 days cyclobenzaprine 10 mg PO TID PRN ibuprofen 600 mg PO Q8H PRN lisinopril 10 mg PO DAILY omeprazole 20 mg PO DAILY Tobacco use date assessed: 06/07/25 Dental Screening Dental Screen Date: 06/07/25 Did you have a dental visit in the last 12 months?: No Did you have a dental problem in the last 6 months where you did not have access to dental care?: No Was dental information given to patient?: No HPI 1 month f/u HPI Details Patient is a 45-year-old male with significant past medical history of varicose veins of bilateral lower extremities, obesity, vitamin-D deficiency, smoker, epilepsy, alcohol abuse, and HTN He is following up for hypertension management. On his previous visit the patient's lisinopril was increased from 5 mg to 10 mg daily. The patient reports medication compliance. He denies any adverse reactions. [facility] Medical History Essential hypertension Varicose veins of bilateral lower extremities with pain Overweight (BMI 25.0-29.9) Vitamin D deficiency Smoker Epilepsy GERD (gastroesophageal reflux disease) Surgical History History of hernia surgery Family History Brother Hypertension Mother Hypertension Social History Housing: House Alcohol intake: current Alcohol intake frequency: a few times a week Alcohol type: beer Patient Tobacco Use Status: Current everyday Tobacco user Cigarettes Per Day: 8 e-Cigarette/Vaping Use: Never Used service: No Current occupational status: employed Cognitive needs: No Hearing needs: No Vision needs: No Questionnaire PHQ-9 Over the last 2 weeks, how often have you been bothered by any of the following problems? 1. Little interest or pleasure in doing things: not at all 2. Feeling down, depressed, or hopeless: not at all 3. Trouble falling or staying asleep, or sleeping too much: not at all 4. Feeling tired or having little energy: several days 5. Poor appetite or overeating: not at all 6. Feeling bad about yourself - or that you are a failure or have let yourself or your family down: not at all 7. Trouble concentrating on things, such as reading the newspaper or watching television: not at all 8. Moving or speaking so slowly that other people could have noticed. Or the opposite - being so fidgety or restless that you have been moving around a lot more than usual: not at all 9. Thoughts that you would be better off or of hurting yourself in some way: not at all Total score: 1 Depression Screening Interpretation: Negative Depression Screening Done: Yes Source: Developed by Drs. Vick Restrepo, Ashley Moody, Al Gonzalez and colleagues, with an educational kareem from [employer]. Thrive Questionnaire Date Thrive assessed: 06/07/25 I am a: Patient What is your living situation today?: I have a steady place to live Within the past 12 months, did the food you bought not last and you didn't have the money to get more?: I choose not to answer this question Within the past 12 months, did you worry whether your food would run out before you got money to buy more?: Never true Do you have trouble paying for medicines?: No Do you have trouble getting transportation to medical appointments?: No Do you have trouble paying your heating and electricity bill?: No Do you have trouble taking care of your child, family member or friend?: No Do you have trouble with day-to-day activities such as bathing, preparing meals, shopping, managing finances, etc.?: No Are you currently unemployed and looking for a job?: No Are you interested in more education?: No Please select the resources that you would like help with: None Currently or been in a relationship where the following occur: I choose not to answer THRIVE Score: 0 AUDIT C Alcohol Use Questionnaire (AUDIT-C) 1. How often do you have a drink containing alcohol?: 2-3 times a week 2. How many drinks containing alcohol do you have on a typical day when you are drinking?: 7 to 9 3. How often do you have six or more drinks on one occasion?: Less than monthly Total Score: 7 DEMARIO-7 AMB Questionnaire DEMARIO-7 Date DEMARIO - 7 assessed: 03/01/25 Feeling nervous, anxious, or on edge: 1 = Several days Not being able to stop or control worryin = Not at all Worrying too much about different things: 0 = Not at all Trouble relaxin = Not at all Being so restless that it is hard to sit still: 0 = Not at all Becoming easily annoyed or irritable: 0 = Not at all Feeling afraid as if something awful might happen: 0 = Not at all Total DEMARIO-7 score (0-4 normal; 5-9 mild; 10-14 moderate; 15-21 severe): 1 Source: Developed by Drs. Vick Restrepo, Ashley Moody, Al Gonzalez and colleagues, with an educational kareem from [employer]. Review of Systems Const Denies body aches, Denies chills, Denies fever(s), Denies headache(s) and Denies poor appetite Eyes Reports no additional complaints ENT Denies dysphagia, Denies dizziness, Denies headache(s) and Denies odynophagia Card Denies chest pain, Denies syncope, Denies edema, Denies irregular heart rhythm, Denies lightheadedness and Denies dyspnea Resp Denies cough and Denies dyspnea GI Denies abdominal pain, Denies constipation, Denies dysphagia, Denies diarrhea, Denies nausea, Denies odynophagia and Denies vomiting Reports no additional complaints Musc Reports no additional complaints and Denies abnormal gait Skin/Breast Reports system reviewed and no additional complaints, except as documented Neuro Denies abnormal gait, Denies dizziness, Denies syncope and Denies headache(s) Psych Reports no additional complaints Physical exam (Primary Care) Vital Signs: Last Vital Signs Pulse 86 06/07/25 16:04 Resp 18 06/07/25 16:04 BP 114/72 06/07/25 16:04 Pulse Ox 97 06/07/25 16:04 Oxygen Delivery Method Room Air 06/07/25 16:04 BMI result Body Mass Index 31.7 Tobacco/Smoking Status: Tobacco use Status Tobacco use date assessed 06/07/25 06/07/25 16:10 Patient Tobacco Use Status Current everyday Tobacco 06/07/25 16:10 e-Cigarette/Vaping Use Never Used 06/07/25 16:10 PHQ-9: PHQ-9 Score PHQ-9: Total score 1 06/07/25 17:41 Depression Screening Interpretation: Negative Thrive Assessment: Date of Thrive Assessment Date Thrive assessed 06/07/25 06/07/25 16:10 Currently or been in a relationship where the following occur: I choose not to answer Const General: cooperative, healthy appearing, comfortable and no acute distress Orientation/consciousness: patient oriented x3 HENMT Head: Yes normocephalic Ears: hearing grossly normal bilaterally General nose exam: Normal external nose present Eyes General: appearance normal, both eyes and all related structures Conjunctivae: conjunctivae normal Neck Neck: Yes full ROM and Yes no lymphadenopathy Resp Effort & Inspection: normal respiratory effort Auscultation: clear to auscultation bilaterally, no crackles, no rales, no rhonchi and no wheezes Cardio Rate: regular rate Rhythm: regular rhythm Skin General skin exam: no rashes or lesions noted Neuro General: patient oriented x3 Gait exam (Neuro): Normal gait present Extrem General: Yes normal to inspection, Yes full ROM and No edema Psych Affect: normal affect Attitude: cooperative Insight: Good insight present (Psych) Judgement: Good judgement present (Psych) Coding Level of Care Code Est Pt Level 3 (00780) Diagnoses Hypertension, unspecified type I10 Hypertension type: unspecified Time Spent (min) 28 Assessment & Plan Assessment & Plan (1) HTN (hypertension): Code(s): I10 - Essential (primary) hypertension Category: Medical Qualifiers: Hypertension type: unspecified Qualified Code(s): I10 - Essential (primary) hypertension Plan: Blood pressure 114/72, within goal. Continue lisinopril 10 mg daily. Reinforced low-salt diet. We will reassess in 3 months. Orders: Orders Lipid Panel 3 Months E55.9 - Vitamin D deficiency, unspecified, E66.3 - Overweight, F10.10 - Alcohol abuse, uncomplicated, F17.200 - Nicotine dependence, unspecified, uncomplicated, G40.909 - Epilepsy, unspecified, not intractable, without status epilepticus, I10 - Essential (primary) hypertension, K21.9 - Gastro-esophageal reflux disease without esophagitis, R63.4 - Abnormal weight loss Vitamin D 25-OH Total 3 Months E55.9 - Vitamin D deficiency, unspecified, E66.3 - Overweight, F10.10 - Alcohol abuse, uncomplicated, F17.200 - Nicotine dependence, unspecified, uncomplicated, G40.909 - Epilepsy, unspecified, not intractable, without status epilepticus, I10 - Essential (primary) hypertension, K21.9 - Gastro-esophageal reflux disease without esophagitis, R63.4 - Abnormal weight loss TSH reflex Free T4 3 Months E55.9 - Vitamin D deficiency, unspecified, E66.3 - Overweight, F10.10 - Alcohol abuse, uncomplicated, F17.200 - Nicotine dependence, unspecified, uncomplicated, G40.909 - Epilepsy, unspecified, not intractable, without status epilepticus, I10 - Essential (primary) hypertension, K21.9 - Gastro-esophageal reflux disease without esophagitis, R63.4 - Abnormal weight loss UA CC w/rflx Micro + Cult 3 Months E55.9 - Vitamin D deficiency, unspecified, E66.3 - Overweight, F10.10 - Alcohol abuse, uncomplicated, F17.200 - Nicotine dependence, unspecified, uncomplicated, G40.909 - Epilepsy, unspecified, not intractable, without status epilepticus, I10 - Essential (primary) hypertension, K21.9 - Gastro-esophageal reflux disease without esophagitis, R63.4 - Abnormal weight loss Comprehensive Schriever. Panel Fast 3 Months E55.9 - Vitamin D deficiency, unspecified, E66.3 - Overweight, F10.10 - Alcohol abuse, uncomplicated, F17.200 - Nicotine dependence, unspecified, uncomplicated, G40.909 - Epilepsy, unspecified, not intractable, without status epilepticus, I10 - Essential (primary) hypertension, K21.9 - Gastro-esophageal reflux disease without esophagitis, R63.4 - Abnormal weight loss Comprehensive Met. Panel 3 Months E55.9 - Vitamin D deficiency, unspecified, E66.3 - Overweight, F10.10 - Alcohol abuse, uncomplicated, F17.200 - Nicotine dependence, unspecified, uncomplicated, G40.909 - Epilepsy, unspecified, not intractable, without status epilepticus, I10 - Essential (primary) hypertension, K21.9 - Gastro-esophageal reflux disease without esophagitis, R63.4 - Abnormal weight loss
[2025-06-07 16:04] VITALS: BP 114/72; PULSE 86; RESP 18; O2SAT 97; BMI 31.7
--- OUTSIDE RECORDS SUMMARY | 2025-06-07 19:21 | XMS_ITS | Data Portability ---
Author Organization [facility], [address] Address [address] [place] [address] Assessment No assessment recorded. Plan of Treatment Reminders Order Date Submit Date Provider Last Modified By Organization Details Last Modified Time Details Appointments None recorded. Lab None recorded. Referral physical therapist referral 2022 023 [email or web address] Not available 08:20:26 Procedures None recorded. Surgeries None recorded. Imaging None recorded. Medication Orders ibuprofen 600 mg tablet 2022 023 [employer] [id number], [address] [place], [address], 3 14:29:47 methocarbam ol 750 mg tablet 2022 023 [employer] [facility] #[id number], [address] [place], [address], 3 14:33:27 Patient TargetsNo targets recorded. Patient InstructionsNo instructions recorded. Reason for Referral Physical Therapist Referral for Low back pain Referring Physician: Ulises Cuevas, Urgent Care, Encounter Date: 11/01/2022 Problems Name Problem SNOMED Code Status Onset Date Resolution Date Notes Provider Name and Address Organization Details Recorded Time Heartburn 07830064 Active 023 IRIS ANJELICA peck, PA - [facility] 3 13:50:12 Epilepsy 12470479 Active 023 IRIS COUVERTDARYL null, PA - [facility] 3 13:50:17 Problem Notes None recorded. Procedures Surgical History Date Name Laterality Status Provider Name and Address Organization Details Recorded Time hernia repair completed SNOW RHODESMICHELLE PA - [facility] 11/01/2022 13:51:03 Imaging Results None recorded. Procedure [...] temperature Respiratory rate Heart rate Oxygen saturation Systolic And Diastolic Provider Name and Address Organization Details Last Updated DateTime 165.1 cm 31.1 kg/m2 75227.7 7 g 98 [degF] 18 /min 100 /min 99 % 132/87 mm[Hg] SNOW BAUTISTA Deven PA - [facility] 13:52:24 Social History Question Answer Notes LastModified by [employer] Details LastModified Time Tobacco Smoking Status Current [...] Functional Status Question Answer Note LastModified by [employer] Details LastModified Time Do you use any [...] Diagnosis SNOMED-CT Code Diagnosis ICD10 Code Diagnosis IMO Codes Diagnosis Note [id number] [facility] [address] [address] 08/30/2021 16:17:41 08/30/2021 17:36:16 [id number] Ulises Cuevas DO _[address] [address] 11/01/2022 11:47:05 11/01/2022 14:35:37 Low back pain [id number] M54.50 Likely muscular originWill Rx NSAID to [...] Member ID Guarantor Name 11/28/2022 1 [employer] [id number] Ugo Jarrell [id number] Ugo Nichole 11/28/2022 1 [employer] [id number] Ugo Jarrell [id number] Ugo Nichole Notes Date Note Type Note Provider Name and Address Organization Details Recorded Time 11/01/2022 text/html ROS as noted in the HPI 42 yo male c/o low back pain x 4 days 7/10 pain scale No radiationNo numbness/tinglingNo weaknessNo foot dropNo saddle anesthesiaNo incontinenceNo traumaNo rash tried ibu with some improvementpain worse with heavy lifting Ulises Cuevas, DO [address] [place], [address], PA - [facility] 11/01/2022 14:36:13
== END 2025-06-07 16:51 | disposition home or self-care (01) ==
LOC: HO.HMCH 15:55
PROVIDERS: PCP Internal Medicine
DX: I10 Essential (primary) hypertension (principal)